=== PATIENT | female | born 1995 | race Caucasian/White ===

== ENCOUNTER → 2019-01-19 | Outpatient (CLI) | payer MEDICAID, SELFPAY ==
[2019-01-19 21:24] LABS: Chlamydia Trachomatis by PCR POSITIVE (Negative); Neisserai gonorrhoeae by PCR Negative (Negative); Probe Check PASS
[2019-01-22 09:00] LABS: HPV Reflexed? NOT INDICATED
== END | disposition home or self-care (01) ==
PROVIDERS: Visit Provider Obstetrics & Gynecology
DX: Z12.4 Encounter for screening for malignant neoplasm of cervix (principal); Z11.3 Encounter for screening for infections with a predominantly sexual mode of transmission
CPT/HCPCS: 87491; 87591; 88175; G0145

== ENCOUNTER → 2019-02-04 14:36 | Outpatient (CLI) | payer MEDICAID, SELFPAY ==
[2019-02-04 15:54] LABS: Amphetamine Urine VISTA NEGATIVE (<1000 ng/mL); Barbiturate Urine VISTA NEGATIVE (< 200 ng/mL); Benzodiazepine Urine VISTA NEGATIVE (< 200 ng/mL); Cocaine Urine VISTA NEGATIVE (< 300 ng/mL); Ecstacy Urine VISTA NEGATIVE (< 500 ng/mL); Methadone Urine VISTA NEGATIVE (< 300 ng/mL); PCP Urine VISTA NEGATIVE (< 25 ng/mL); THC Urine VISTA NEGATIVE (< 50 ng/mL); Vista UDS pH Range 6
[2019-02-04 15:59] LABS: Color, Urine Yellow (Yellow); Glucose, Dipstick Normal (Normal); Ketone-Dipstick Negative (Negative); Leukocyte Esterase-Dipstick 500 /ul (Negative); Nitrite-Dipstick Negative (Negative); Occult Blood-Urine Negative /ul (Negative); Protein-Dipstick Negative (Negative); Specific Gravity, Urine 1.015 (1.002-1.030); Urine Bilirubin Dipstick Negative (Negative); Urine Clarity Sl. Cloudy (Clear); Urine Urobilinogen 1 mg/dl (Normal); Urine pH 6.5 (5.0 - 8.0)
[2019-02-04 16:03] LABS: Thyroid Stim Hormone (TSH) 0.21 uIU/mL (0.358-3.74)
[2019-02-04 16:27] LABS: COTININE Drug Screen Negative (<200 ng/mL)
[2019-02-04 16:32] LABS: Absolute Lymphocyte Count 2.87 X10^3/ul (0.83-4.51); Absolute Neutrophil Count 7.8 X10^3/uL (2.0-7.7); Basophil# 0.05 X10^3/uL; Basophil% 0.4 % (0-1); Eosinophil# 0.14 X10^3/uL; Eosinophils% 1.2 % (0-5); Hematocrit 40.5 % (37-47); Lymphocyte # 2.87 X10^3/ul (4.0); Lymphocyte % 24.3 % (19-41); Mean Corp Hgb Conc 34.6 g/gl (32-36); Mean Corpuscular Hgb 28.4 pg (27.0-32.0); Mean Corpuscular Volume 82.2 fL (81-99); Mean Platelet Vol. 10.8 fl (6.2-12.0); Monocyte# 0.95 X10^3/uL; Neutrophil # 7.78 X10^3/uL (2.7-7.7); Neutrophil % 65.8 % (47-70); Platelet Count 258 K/mm3 (150-450); RBC Distribution Width SD 38.4 fl (35.1-43.9); Red Blood Count 4.93 M/mm3 (4.2-5.4); White Blood Count 11.8 K/mm3 (4.4-11.0)
[2019-02-04 16:33] LABS: POSITIVE COUNT NO; POSITIVE DIFFERENTIAL NO; POSITIVE MORPHOLOGY NO
[2019-02-04 16:44] LABS: HIV - WCH Non-Reactive (Nonreactive)
[2019-02-04 20:34] LABS: Chlamydia Trachomatis by PCR Negative (Negative); Neisserai gonorrhoeae by PCR Negative (Negative); Probe Check PASS; Sample Adequacy Control PASS; Specimen Processing Control PASS
[2019-02-05 11:11] LABS: Free T3 3.2 pg/mL (2.18-3.98); T4 Free Direct 1.34 ng/dL (0.76-1.46)
[2019-02-06 03:40] LABS: Prenatal RPR NONREACTIVE (NONREACTIVE)
[2019-02-06 11:31] LABS: HEPATITIS B SURFACE AG Negative (Negative); Hep C Antibodies <0.1 s/co ratio (0.0-0.9)
== END ==
PROVIDERS: Visit Provider Obstetrics & Gynecology
DX: Z34.81 Encounter for supervision of other normal pregnancy, first trimester (principal); Z11.3 Encounter for screening for infections with a predominantly sexual mode of transmission; R94.6 Abnormal results of thyroid function studies
CPT/HCPCS: 36415; 80307; 81002; 84439; 84443; 84481; 85025; 86703; 86762; 86803; 87340; 87491; 87591

== ENCOUNTER → 2019-06-08 | Outpatient (CLI) | payer MEDICAID, SELFPAY ==
[2019-06-08 10:41] LABS: Hematocrit 32.3 % (37-47); Mean Corp Hgb Conc 34.1 g/dL (32-36); Mean Corpuscular Hgb 30.7 pg (27.0-32.0); Mean Corpuscular Volume 90.2 fL (81-99); Mean Platelet Vol. 10.1 fl (6.2-12.0); Platelet Count 219 K/mm3 (150-450); RBC Distribution Width CV 12.5 % (11.6-14.6); RBC Distribution Width SD 41.3 fl (35.1-43.9); Red Blood Count 3.58 M/mm3 (4.2-5.4); White Blood Count 13.3 K/mm3 (4.4-11.0)
[2019-06-08 10:45] LABS: Glucose Challenge Gest 1H 50g 88 mg/dL (70-140)
== END | disposition home or self-care (01) ==
PROVIDERS: Visit Provider Obstetrics & Gynecology
DX: Z34.82 Encounter for supervision of other normal pregnancy, second trimester (principal)
CPT/HCPCS: 36415; 82950; 85027

== ENCOUNTER → 2019-06-11 | Outpatient (CLI) | payer MEDICAID, SELFPAY | END | disposition home or self-care (01) | LOC: LABSPEC 10:12 | PROVIDERS: Visit Provider Obstetrics & Gynecology | DX: O26.892 Other specified pregnancy related conditions, second trimester (principal); R30.0 Dysuria; Z3A.00 Weeks of gestation of pregnancy not specified | CPT/HCPCS: 87086; 87088 ==

== ENCOUNTER 2019-06-29 04:20 | Outpatient (CLI) | payer MEDICAID, SELFPAY ==
[2019-06-29 04:38] VITALS: BMI 24.8
[2019-06-29 04:55] LABS: Color, Urine Yellow (Yellow); Glucose, Dipstick Normal (Normal); Ketone-Dipstick 5 mg/dl (Negative); Leukocyte Esterase-Dipstick 100 /ul (Negative); Nitrite-Dipstick Negative (Negative); Occult Blood-Urine Negative /ul (Negative); Protein-Dipstick Negative (Negative); Specific Gravity, Urine 1.015 (1.002-1.030); Urine Bilirubin Dipstick Negative (Negative); Urine Clarity Sl. Cloudy (Clear); Urine Urobilinogen 1 mg/dl (Normal); Urine pH 6.5 (5.0 - 8.0)
[2019-06-29 05:24] LABS: Bacteria 0 SEEN /hpf (None Seen); Mucous, Urine 0 SEEN /hpf (<or=2+); Red Blood Cells-Urine 0 SEEN /hpf (0-5)
[2019-06-29 05:27] LABS: Squamous Epithelial Cells - UA > 100 SEEN /hpf (5-10); White Blood Cells 5-10 SEEN /hpf (0-5)
[2019-06-29] MEDS: Lactated Ringers 1,000 ML 999 ML IV (05:48)
[2019-06-29 06:30] LABS: Fetal Fibronectin Negative
[2019-06-29] MEDS: Betamethasone/Betamethasone 30 MG/5 ML Vial 12 MG IM (09:19)
--- NOTE | 2019-06-30 08:10 | OB.TRI.HP_ITS ---
History of Present Illness Date of Service: 06/29/19 Was patient seen by the physician?: No Reason For Visit: R/O LABOR Date of Service: 06/29/19 Final HSAMEKA: 09/07/19 Gestational age: 30 Weeks and 0 Days History of Present Illness: 30-week intrauterine presents with some contractions. care has been otherwise uneventful. Allergies Penicillins Allergy (Verified 06/29/19 04:50) Rash Laboratory Studies: Laboratory Tests 06/29/19 06/29/19 Range/Units 05:56 04:30 Urine Color Yellow (Yellow) Urine Clarity Sl. Cloudy (Clear) Urine pH 6.5 (5.0 - 8.0) Ur Specific [place] 1.015 (1.002-1.030) Urine Protein Negative (Negative) mg/dl Urine Glucose (UA) Normal (Normal) mg/dl Urine Ketones 5 H (Negative) mg/dl Urine Occult Blood Negative (Negative) /ul Urine Nitrite Negative (Negative) Urine Bilirubin Negative (Negative) mg/dL Urine Urobilinogen 1 H (Normal) mg/dl Ur Leukocyte Esterase 100 H (Negative) /ul Urine RBC 0 SEEN (0-5) /hpf Urine WBC 5-10 SEEN (0-5) /hpf Ur Squamous Epith Cells > 100 SEEN (5-10) /hpf Urine Bacteria 0 SEEN (None Seen) /hpf Urine Mucus 0 SEEN (<or=2+) /hpf Fibronectin Negative NST - FHR Rate Baby A NST Reactive:: Yes FHR Category:: Category I Uterine Activity:: Some uterine irritability noted on monitor which subsided after IV fluids. Impression/Plan 30-week intrauterine with some transient contractions. Cervix closed, nonthreatening and contractions slowed after IV fluid. Celestone given. Return for her second dose of Celestone and routine follow-up.
== END 2019-06-29 09:20 | disposition home health service (06) ==
LOC: WPOUT 04:28 → WP 04:30
PROVIDERS: Referring Provider Advanced Practice Midwife; Visit Provider Advanced Practice Midwife
DX: O60.03 Preterm labor without delivery, third trimester (principal); Z3A.30 30 weeks gestation of pregnancy
CPT/HCPCS: 96360; 59025; 59050; 81001; 82731; 96372; 99218; J7120; G0378; J0702

== ENCOUNTER 2019-06-30 08:57 | Outpatient (CLI) | payer MEDICAID, SELFPAY ==
[2019-06-29 04:38] VITALS: BMI 24.8
[2019-06-30 09:06] VITALS: BMI 25.0
[2019-06-30] MEDS: Betamethasone/Betamethasone 30 MG/5 ML Vial 12 MG IM (09:14)
--- NOTE | 2019-07-07 07:56 | OB.TRI.NOTE ---
History of Present Illness Reason For Visit: INJECTION Date of Service: 06/30/19 Final SHAMEKA: 09/07/19 Final SHAMEKA Source: US <20 weeks Gestational age: 30 Weeks and 1 Days History of Present Illness: presents this date of service for second betamethasone injection Allergies Penicillins Allergy (Verified 06/29/19 04:50) Rash Impression/Plan 30 1/ wk For second steroid injection. (See prior note visit) Betamethasone given Home.
== END 2019-06-30 09:20 | disposition home or self-care (01) ==
LOC: WPOUT 09:00 → WP 09:00
PROVIDERS: Referring Provider Obstetrics & Gynecology; Visit Provider Obstetrics & Gynecology
DX: Z34.90 Encounter for supervision of normal pregnancy, unspecified, unspecified trimester (principal)
CPT/HCPCS: 96372; 99218; G0378; J0702

== ENCOUNTER → 2019-07-13 | Outpatient (CLI) | payer MEDICAID, SELFPAY ==
[2019-06-30 09:06] VITALS: BMI 25.0
[2019-07-13 13:52] LABS: Free T3 2.6 pg/mL (2.18-3.98); T4 Free Direct 0.83 ng/dL (0.76-1.46); Thyroid Stim Hormone (TSH) 1.11 uIU/mL (0.358-3.74)
== END | disposition home or self-care (01) ==
LOC: WOBLAB 09:59
PROVIDERS: Visit Provider Obstetrics & Gynecology
DX: Z34.83 Encounter for supervision of other normal pregnancy, third trimester (principal)
CPT/HCPCS: 36415; 84439; 84443; 84481

== ENCOUNTER → 2019-08-10 | Outpatient (CLI) | payer MEDICAID, SELFPAY | END | disposition home or self-care (01) | LOC: LABSPEC 13:07 | PROVIDERS: Visit Provider Obstetrics & Gynecology | DX: Z36.85 Encounter for antenatal screening for Streptococcus B (principal) | CPT/HCPCS: 87077; 87081; 87186 ==

== ENCOUNTER 2019-08-29 07:50 | Outpatient (CLI) | payer MEDICAID, SELFPAY ==
[2019-08-29 08:37] VITALS: BMI 28.4
[2019-08-29 09:12] LABS: ROM Internal Control Test YES-OK TO RESULT pt. (Internal QC); ROM Patient Test Negative (Negative)
--- NOTE | 2019-08-31 08:04 | OB.TRI.HP_ITS ---
History of Present Illness Date of Service: 08/29/19 Was patient seen by the physician?: Yes Reason For Visit: R/O RUPTURE Date of Service: 08/29/19 Final SHAMEKA: 09/07/19 Final SHAMEKA Source: US <20 weeks Gestational age: 38 Weeks and 5 Days History of Present Illness: 23 yo [id number] female presents at 38 5/7 wk with inc fluid per vagina. [place] the night prior. Here for labor check. Allergies Penicillins Allergy (Verified 06/29/19 04:50) Rash Laboratory Studies: Laboratory Tests 08/29/19 Range/Units 08:10 Vag Amniotic Fld Detect Negative (Negative) Physical Exam Cervix Dilation (cm): 0 - ROM plus test NEGATIVE Station: -3 Effacement (%): 0 NST - FHR Rate Baby A Baseline: 110-120s avg variability. Accels to 160-170 Variability:: Moderate Accelerations:: 15 x 15 Decelerations:: None NST Reactive:: Yes, Appropriate for gestational age FHR Category:: Category I Uterine Activity:: irregular UCs. Impression/Plan 38 5/7 wk false labor. ROM plus test NEG Cervix closed NST reactive Home after testing Keep next ofc appt as scheduled Return to if inc s/sx of labor.
== END 2019-08-29 09:25 | disposition home or self-care (01) ==
LOC: WPOUT 08:20 → WP 08:21
PROVIDERS: Referring Provider Advanced Practice Midwife; Visit Provider Advanced Practice Midwife
DX: O47.1 False labor at or after 37 completed weeks of gestation (principal); Z3A.38 38 weeks gestation of pregnancy
CPT/HCPCS: 59025; 59050; 84112; 99218; G0378

== ENCOUNTER 2019-09-01 10:50 | Inpatient (IN) | payer MEDICAID, SELFPAY ==
[2019-09-01 10:42] VITALS: BMI 28.7
[2019-09-01 10:47] LABS: ROM Internal Control Test YES-OK TO RESULT pt. (Internal QC)
[2019-09-01 10:49] LABS: ROM Patient Test POSITIVE (Negative)
[2019-09-01 12:31] LABS: Absolute Lymphocyte Count 2.49 X10^3/uL (0.83-4.51); Absolute Neutrophil Count 8.7 X10^3/uL (2.0-7.7); Basophil# 0.04 X10^3/uL; Basophil% 0.3 % (0-1); Eosinophil# 0.02 X10^3/uL; Eosinophils% 0.2 % (0-5); Hematocrit 31.4 % (37-47); Hemoglobin 10.4 g/dL (12.0-15.0); Lymphocyte # 2.49 X10^3/ul (4.0); Mean Corp Hgb Conc 33.1 g/dL (32-36); Mean Corpuscular Hgb 26.9 pg (27.0-32.0); Mean Corpuscular Volume 81.1 fL (81-99); Mean Platelet Vol. 10.8 fl (6.2-12.0); Monocyte# 1.32 X10^3/uL; Monocyte% 10.1 % (0-10); NRBC Flagged by Analyzer 0 % (0-5); Neutrophil # 8.74 X10^3/uL (2.7-7.7); Neutrophil % 66.6 % (47-70); Platelet Count 191 K/mm3 (150-450); RBC Distribution Width SD 40.7 fl (35.1-43.9); Red Blood Count 3.87 M/mm3 (4.2-5.4); White Blood Count 13.1 K/mm3 (4.4-11.0)
[2019-09-01] MEDS: Oxytocin 30 units/NS 500 ml 30 UNITS/500 ML IV.SOLN IV (13:11)
[2019-09-01] MEDS: Lactated Ringers 1,000 ML 50 ML IV (13:11)
--- NOTE | 2019-09-01 13:38 | HP.PCM_ITS ---
History and Physical Date of Admission: 09/01/19 [facility] [place] ANTEPARTUM RECORD - HISTORY AND PHYSICAL (09/01/2019) Name: OSBALDO SHERMAN OB Physician: SOPHY Tohatchi's Physician: UNDECIDED ...................................................................... : 1995 Age: 23 Address: [address] [place] [address] Phone: (h) [phone] (O) [phone] Insurance Carrier: [employer] [id number] Emergency Contact: ITZEL ROMEO [phone] ...................................................................... Osbaldo is a 23yo at 39w1d gestation by L=9w2d US who presents to unit c/o PROM at 0700 Final SHAMEKA: 09/07/19 By Ultrasound: 9 weeks 2 days PARITY: (G-Total Pregnancies P-Fullterm,Premature,Induced AB,Spont AB, Ectopics, Multiple,Living) SHAMEKA CONFIRMATION: By LMP: 12/01/18 Initial Exam: 09/07/19 By First Ultrasound Exam: 09/09/19 Final SHAMEKA: 09/07/19 BLOOD TYPE: AFP: 1 HR PG: GBS: Original Ordering Provider: Elke INTERIANO Culture ORGANISM 1: Streptococcus agalactiae (B) Amount Growth Growth Streptococcus agalactiae (B): REACTION Ampicillin $ <=0.25 S Benzylpenicillin NF <=0.06 S Ceftriaxone $ <=0.12 S Clindamycin $$ <=0.25 S Inducable Clindamycin Resistan NEG Linezolid $$$$ <=2 S Vancomycin $ 0.5 S Reference Range: S= Susceptible, I= Intermediate, R= Resistant MICS are expressed in micrograms per mL (NF) indicates non-formulary drug at [facility]. Approval by Infectious Disease Specialist required before non-formulary drugs may be ordered and/or dispensed. Testing performed on Vitek 2 instrument Rublla titer (>10 immune)-- Hepatatis B mars AG-- CULTURES:-- OB PROBLEM LIST: ALLERGIC TO PENICILLINS Enc office Childbirth and Classes. Decline AFP and CF. Group B positive Tdap done! TSH low first trimester, Free T4 WNL Repeat 3rd trimester -- ALL WNL ALLERGIES: No Known Drug Allergies Penicillins Rash MEDICATIONS: Vitamin 27 mg iron-0.8 mg tablet SOCIAL HISTORY: Smoking - Never Alcohol Use - occasionally not while Diet - balanced Diet and About one can daily of soda. Water intake tries 2-3 bottles daily. 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 Place of - [place] Hours Worked - varies Spouse-Sig Other Name - Anjum Romeo Spouse-Sig Other Occupation - self employed [employer] Spouse-Sig Other Phone No - [phone] PRIOR DELIVERY HISTORY DEL DATE GEST LAB WT LB WT OZ TYPE ANES LABOR TX ANTEPARTUM FLOW CHART VISIT GE RTC FU F F VT U U DATE WK MD WKS HT PN HR M SS BP ED WT VT GL D EF ST __ ____ ___ __ __ ___ __ __ __ ___ __ __ __ ___ __ 02 Aug ELB 1 38 V + + 118/70 sl 154 1 50 -3 Jul ELB 1 38 V + + 124/70 151 tr - cl TH -3 Jul ELB 1 36 V + + 114/80 0 149 tr - Jul ELB 1 34 V + + 100/70 0 147 tr - cl TH -3 Jun ELB 2 34 V + + 90/60 0 144 - - 14 Jun 32 ELB 2 32 + 90/56 0 139 - - 30 Jun 29 ELB 2 29 - + + 102/56 0 136 - - Jun 26 ELB 3 27 - + + 106/62 0 129 tr - 09 Jun 26 ELB 2 27 - U+ + 120/70 0 131 tr - May 22 ELB 4 22 - + + 102/60 0 123 tr - Apr 17 ELB 4 - - U+ + 90/52 0 116 tr - Apr 15 ELB 3 - - + O 80/50 0 115 - - Feb 13 DS 4 13 ? + O 108/68 0 114 - - February 05 DS 4 U+ O 102/58 0 121 - - ANTEPARTUM NOTE(S): Aug 31 2019: see note Aug 24 2019: Aug 17 2019: feeling well. Cxs on and off. Aug 10 2019: GBS and LARC today. Intereseted in IUD 6 wk . Jul 27 2019: feeling well. Cxs come and going. Jul 13 2019: feeling well. Jun 29 2019: feeling well. In L and D lastnight due to cxs. Jun 11 2019: Jun 08 2019: doing well, glucola given May 11 2019: back pain Apr 13 2019: comp u/s today Mar 30 2019: complains of dizziness when standing. Mar 05 2019: Periodic nausea and fatigue February 04 2019: see note COMPREHENSIVE ANTEPARTUM NOTE(S): Aug 31 2019: Osbaldo is here for visit. Reviewed signs and sx of labor. Eating ice and worried about anemia. Reassured regarding last Hgb of 11. No other craving to eat other non nutritional objects. She is asking about mucus plug. Advised of little significance. Watch for SROM, bloody show, progressive ctx's. FM reviewed. Had Tdap but no Influenza as reactions to this jprior. LMT Aug 14 2019: H taken to OB. tkg Aug 13 2019: Group B positive - KVW Jul 27 2019: (m*) Reports +FM, FHR 138. [place] baby do a flip, but vertex today still. Educated on now running out of room to move, so if head down will likely stay head down. Reporting contractions almost every night at bed which make it hard to fall asleep. Educated on remaining hydrated, taking it easier during the day, OTC sleep aides that may help and to come in if regular. Patient asked why no other providers have ordered US for her because she had one at every visit with her previous doctor who left. Reviewed normal recommended time frame for 2 US in . States she is a lot more relieved to know this now. Will return in 2 weeks for appt with EB. To call with regular UC or any questions/conerns. - Jul 13 2019: 32 weeks. Reporting mild irregular, UC. Nothing consistent like before. Reassured with two doses of betamethasone. Reviewed s/s of ROM, regular contractions q5min, or bleeding to call/come in. Heart tones 130. Will recheck TSH, free T4 and T3 today, 0.21 in 1st trimester with normal T4. Hg borderline at 11, Reviewed iron rich foods like red meats and green leafy vegetables, reports good protein intake. - Jun 29 2019: In L and D last night with CC of UCs and cramping. UA no bacteria (poor clean catch with many epithelial cells.) FFN test NEG. Encouraged home to rest. NST reactive in L and D. Reviewed 28 wk labs all WNL. RTO in 2 wk for PNV. EB Jun 11 2019: Osbaldo is here as a work in visit reporting leaking clear fluid yesterday, greenish discharge apprx 9 pm and again 3am when she woke up w/ cramping. Cramping is less now and no further green discharge or clear fluid. Long dip urine showing spgr 1.010, ph 7.5, trace protein, large leuks, rest is negative. Good FM. kbm Jun 11 2019: fundal height cwd. Reviewed 28 wk labs. all WNL. SROM testing today: negative. Neg pool, neg fern, Ntz neg. Vaginal vault with thick yellow - grn adherent dischg Watery dischg. Wet prep: yeast. RX sent in for terconazole to treat. EB Jun 10 2019: Hgb 11 g/d. Glucola 88 WNL. EB Jun 08 2019: Pt thought sono to be done today. Low lying placenta 1.85cm Plan was to repeat sono at 30 wks.. Pt informed was scheduled for this at NEXT PNV in 2 wks as we did Glucola today. Sono tech has time, so will do sono today. RTO in 2 wk for PNV. Glucola done today. EB May 11 2019: Osbaldo is here for visit. Asking about repeat u/s for low lying placenta, advised around 28-30 weeks for this. Reports more back pain. Encouraged exercise like walking and daily stretching as per the What to Expect book in the fourth month they go over exercises to improve discomforts associated with enlarging uterus. Glucola given, reminided regarding influenza and Tdap. LMT May 11 2019: Glucola and CBC next visit. F/U sono at 30 wk for placenta. EB Apr 13 2019: -2 # wt gain. Baby transverse on sono.. 53rd%. 10 oz. Lower lying placenta, no previa... 1.85 cm from cervical os. EB Mar 30 2019: Advised to inc po fluids to help with orthostatic hypotension sx. Dizzy with standing quickly. ALSO: some cramping and inc po fluids should help with this .. Reviewed record to this point. 3# wt loss.. .denies any N/V. Feeling well. Prior chlamydia positive tx'd and NEG BREEZY. She took the [place] [place] test: IT'S A BOY! RTO in 2-3 wk for anatomy ultrasound. Advised this is to check baby's anatomy: growth, kidneys, heart, etc. May also confirm gender. EB Mar 05 2019: Doing well. No bleeding. labs reviewed today. A positive blood type. Feb 04 2019: US c/w LMP dating today. No bleeding. NOB nurse intake and labs ordered today. Will repeat GC/Chlam testing at her next visit. Feb 04 2019: Osbaldo is here with FOBasil, Anjum Romeo for NOB nurse visit with SHAMEKA 09-07-19 planning a vag del at [facility], unsure of epidural or ped care post delivery. 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 They live with Anjum's parents. They are happy about the . Osbaldo is allergic to penicillins which cause a rash. She has no food, latex or environmental allergies. Her diet sounds well balanced w an occ can of soda. She drinks a few bottles of water daily and was advised to try to double that soon and increase to several liters as the weather warms up. Importance of protein in her diet discussed. She is a lifetime non smoker, denies street drug use, past or present and drinks alcohol occ but not in pg. She is active with her job however does no other exercise and was enc to walk 20 min daily. She seems unwilling to do this. Genetics Screening form completed noting no family issues. They decline AFP and CF tests. Warning signs in pg discussed as well as otc meds ok to take, lifting restriction of 25#, wearing seatbelt low on her abdomen, reaching office after hours w understanding voiced. They have a copy of What to Expect. US done and routine labs drawn. Info given on Childbirth and Classes in the office and given info on foods to be careful with during pg. They have no cats but are aware of litter box issues. Enc to call w any concerns. Visit lasted approx 50 min. Parvin HERNANDES Jan 19 2019: PT is a 23 yo female, Primip, here today for a missed menses appt. PT had a positve UPT in office today. PT LMP was 12/01/2018, giving her an EDC of 09/07/2019 and making her approx. 7 wks GA today. PT states she had some slight spotting yesterday, bright red in color, but has since stopped. PT denies any other problems or concerns at this time. PT given new bag/paperwork. PT is due for pap and G/ .CT today . dg REVIEW OF SYSTEMS: GENERAL - Denies fever, or chills SKIN - Denies rash, new skin lesions, or change in moles EYES - Denies blurred vision, or change in visual acuity EARS - Denies ear pain, or difficulty hearing NOSE - Denies nasal congestion, discharge, or bleeding MOUTH - Denies sore throat, or difficulty swallowing NECK - Denies pain or swelling RESPIRATORY - Denies shortness of breath, cough, wheezing CARDIOVASCULAR - Denies palpitations, chest pain, orthopnea, PND, peripheral edema, syncope or claudication GASTROINTESTINAL - Denies nausea, vomiting, diarrhea, constipation, Denies abdominal pain, melena and or bright red blood GENITOURINARY - Denies dysuria, frequency of urination, urgency, or hesitancy MUSCULOSKELETAL - Denies joint or muscle pain, or back pain NEUROLOGICAL - Denies localized numbness, weakness, or tingling PSYCHIATRIC - Denies depression, anxiety, substance abuse or suicide attempts ENDOCRINE - Denies heat or cold intolerance, weight loss or gain, increasing thirst HEMATO-IMMUNOLOGIC - Denies easy bruising, bleeding, oral ulcerations or recurr ent infections GENETICS SCREENING: Age 35+ years: No Thalassemia: No Neural Tube Defect: No Down Syndrome: No BREEZY-SACHS: No Sickle Cell Disease: No Hemophilia: No Musc. Dystrophy: No Cystic Fibrosis: No-declines screening Hodgeman Chorea: No Mental Retardation: No Fragile X: No Other genetic: No Other defects: No SABs/still births: No Drugs since LMP: Yes INFECTION HISTORY: High risk AIDS: No High risk Hepatitis: No Exposed to TB: No Exposed to Herpes: No Rash/viral illness since LMP: No History of STD: Chlamydia, Treated at appt. MENSTRUAL HISTORY: *Menses Amount/Duration: 4-5 daysMenses Regularity: RegularFrequency: 28* PAST SUMMARY: PARITY: 1. Total Pregnancies............ 1 2. Full Term Pregnancies........ 0 3. Premature.................... 0 4. Abortions - Induced.......... 0 5. Abortions - Spontaneous...... 0 6. Ectopics..................... 0 7. Multiple Births.............. 0 8. Living Children.............. 0 Labs for : OSBALDO SHERMAN since 12/11/2018 ORDER DATEIN DESCRIPTION VALUE UNITS RANGE A+ COMMENT CBC W/DIFF, AUTOMATED 09/01/19 NOTE Original Ordering Provider: KENDRA Harris WBC 13.1 K/mm3 4.4-11.0 H RBC 3.87 M/mm3 4.2-5.4 L HGB 10.4 g/dL 12.0-15.0 L HCT 31.4 % 37-47 L MCV 81.1 fL 81-99 MCH 26.9 pg 27.0-32.0 L MCHC 33.1 g/dL 32-36 RDW CV 14.0 % 11.6-14.6 RDW SD 40.7 fl 35.1-43.9 PLT 191 K/mm3 150-450 MPV 10.8 fl 6.2-12.0 NEUT% 66.6 % 47-70 LY% 19.0 % 19-41 MONO% 10.1 % 0-10 H EO% 0.2 % 0-5 BASO% 0.3 % 0-1 IM GRAN % 3.800 % 0.0-0.9 H IG% - Immature Granulocytes (promyelocytes, myelocytes and metamyelocytes) > 1% indicates that a LEFT SHIFT is Present. ABSOLUTE NEUT 8.7 X10 3/uL 2.0-7.7 H ABSOLUTE LYMPH 2.49 X10 3/uL 0.83-4.51 NRBC, FLAGGED 0 % 0-5 (ROM) RUPTURE OF MEMBRANES 09/01/19 NOTE Original Ordering Provider: KENDRA Harris ROM POSITIVE Negative H Amniotic fluid present indicates rupture of Membranes. RESULTS CALLED TO SEEMA HERNANDES (O.B.) 09/01/19 1047 Percy Gambino. REPORT READ BACK BY . Reviewed by ELKE (TYRELL) RUPTURE OF MEMBRANES 08/29/19 NOTE Original Ordering Provider: KENDRA Oanholga Harris ROM Negative Negative Amniotic fluid not present indicates No Rupture of Membranes at time of specimen collection. Reviewed by ELKE CULTURE, GROUP B STREPTOCOCCUS 08/10/19 NOTE Original Ordering Provider: Elke Ray LAISHA Culture ORGANISM 1: Streptococcus agalactiae (B) Amount Growth Growth Streptococcus agalactiae (B): REACTION Ampicillin $ <=0.25 S Benzylpenicillin NF <=0.06 S Ceftriaxone $ <=0.12 S Clindamycin $$ <=0.25 S Inducable Clindamycin Resistan NEG Linezolid $$$$ <=2 S Vancomycin $ 0.5 S Reference Range: S= Susceptible, I= Intermediate, R= Resistant MICS are expressed in micrograms per mL (NF) indicates non-formulary drug at [facility]. Approval by Infectious Disease Specialist required before non-formulary drugs may be ordered and/or dispensed. Testing performed on Vitek 2 instrument Reviewed by ELKE T4 FREE DIRECT 07/13/19 NOTE Original Ordering Provider: Elke Ray T4 FREE DIRECT 0.83 ng/dL 0.76-1.46 Reviewed by ELKE THYROID STIM HORMONE (TSH) 07/13/19 NOTE Original Ordering Provider: Elke Ray TSH 1.11 uIU/mL 0.358-3.74 Reviewed by ELKE FREE T3 07/13/19 NOTE Original Ordering Provider: Elke Ray FREE T3 2.6 pg/mL 2.18-3.98 Reviewed by ELKE CORREA, URINE 06/11/19 NOTE Original Ordering Provider: Elke Ray Urine Culture Below infection level. ORGANISM 1: Mixed Gram Positive Organisms Napoleon Count <1000 ORGANISM 2: Yeast Like Organism Napoleon Count <1000 Reviewed by ELKE GLUCOSE CHALLENGE GEST 1H 50G 06/08/19 NOTE Original Ordering Provider: Elke Ray GLU GEST 50G 1H 88 mg/dL 70-140 Reviewed by ELKE CBC-COMPLETE BLOOD CNT NO DIFF 06/08/19 NOTE Original Ordering Provider: Elke Ray WBC 13.3 K/mm3 4.4-11.0 H RBC 3.58 M/mm3 4.2-5.4 L HGB 11.0 g/dL 12.0-15.0 L HCT 32.3 % 37-47 L MCV 90.2 fL 81-99 MCH 30.7 pg 27.0-32.0 MCHC 34.1 g/dL 32-36 RDW CV 12.5 % 11.6-14.6 RDW SD 41.3 fl 35.1-43.9 PLT 219 K/mm3 150-450 MPV 10.1 fl 6.2-12.0 Reviewed by ELKE HEPATITIS C ANTIBODIES 02/04/19 NOTE Original Ordering Provider: Murray Barney HEP C AB <0.1 s/co ratio 0.0-0.9 Negative: < 0.8 Indeterminate: 0.8 - 0.9 Positive: > 0.9 The CDC recommends that a positive HCV antibody result be followed up with a HCV Nucleic Acid Amplification test (893686). Reviewed by MURRAY HEPATITIS B SURFACE AG 02/04/19 NOTE Original Ordering Provider: Murray Barney HB SURF AG Negative Negative Performed at: [address] [id number] Senior Sales Administrator: Arnulfo Salmeron PhD, Phone: [phone] Reviewed by MURRAY RPR 02/04/19 NOTE Original Ordering Provider: Murray Barney RPRw NONREACTIVE NONREACTIVE Reviewed by RONNIE T4 FREE DIRECT 02/04/19 NOTE Original Ordering Provider: Murray Barney T4 FREE DIRECT 1.34 ng/dL 0.76-1.46 Reviewed by MURRAY THYROID STIM HORMONE (TSH) 02/04/19 NOTE Original Ordering Provider: Murray Barney TSH 0.21 uIU/mL 0.358-3.74 L Reviewed by MURRAY FREE T3 02/04/19 NOTE Original Ordering Provider: Murray Barney FREE T3 3.2 pg/mL 2.18-3.98 Reviewed by MURRAY T AND S-NO CHARGE W/PNP 02/04/19 Reason for Type AND Screen/Red Cells: Surgery? [facility]~[address] [place], [address]~ BLOOD TYPE GEL A POSITIVE N AB SCREEN GEL NEGATIVE N Reviewed by MURRAY HIV - [facility] 02/04/19 NOTE Original Ordering Provider: Murray Barney HIV - [facility] Non-Reactive Nonreactive Reviewed by MURRAY RUBELLA IGG 02/04/19 NOTE Original Ordering Provider: Murray Barney RUBELLA IGG 125.0 IU/mL Antibody results Interpretation of Immune Status < 5 IU/ml Presumed Non-immune 5 - < 10 IU/ml Equivocal > or = 10 IU/ml Presumed Immune Reviewed by MURRAY CBC W/DIFF, AUTOMATED 02/04/19 NOTE Original Ordering Provider: Murray Barney WBC 11.8 K/mm3 4.4-11.0 H RBC 4.93 M/mm3 4.2-5.4 HGB 14.0 g/dl 12.0-15.0 HCT 40.5 % 37-47 MCV 82.2 fL 81-99 MCH 28.4 pg 27.0-32.0 MCHC 34.6 g/gl 32-36 RDW CV 13.0 % 11.6-14.6 RDW SD 38.4 fl 35.1-43.9 PLT 258 K/mm3 150-450 MPV 10.8 fl 6.2-12.0 NEUT% 65.8 % 47-70 LY% 24.3 % 19-41 MONO% 8.0 % 0-10 EO% 1.2 % 0-5 BASO% 0.4 % 0-1 IM GRAN % 0.300 % 0.0-0.9 IG% - Immature Granulocytes (promyelocytes, myelocytes and metamyelocytes) > 1% indicates that a LEFT SHIFT is Present. ABSOLUTE NEUT 7.8 X10 3/uL 2.0-7.7 H ABSOLUTE LYMPH 2.87 X10 3/ul 0.83-4.51 Reviewed by MURRAY NICOTINE URINE DRUG SCREEN 02/04/19 NOTE Original Ordering Provider: Murray Barney TO BE CONFIRMED CONFIRMATORY TESTING FOR ALL POSITIVE URINE DRUG SCREEN RESULTS WILL ONLY BE SENT OUT UPON PHYSICIAN ORDER. The results of Urine Drug Screen methods provide only preliminary analytical test results. A more specific alternate chemical method must be used in order to obtain a confirmed analytical result. Gas chromatography/mass spectrometery (GC/MS) is the preferred confirmatory method. Clinical consideration and professional judgement should be applied to any drug of abuse test result, particularly when preliminary positive results are used. COT DRG SCREEN Negative <200 ng/mL Cotinine is the first-stage metabolite of Nicotine. Reviewed by MURRAY URINE DRUG SCREEN (VISTA) 02/04/19 NOTE Original Ordering Provider: Murray Barney TO BE CONFIRMED CONFIRMATORY TESTING FOR ALL POSITIVE URINE DRUG SCREEN RESULTS WILL ONLY BE SENT OUT UPON PHYSICIAN ORDER. VISTA Urine Drug Screen methods provide only preliminary analytical test results. A more specific alternate chemical method must be used in order to obtain a confirmed analytical result. Gas chromatography/mass spectrometery (GC/MS) is the preferred confirmatory method. Clinical consideration and professional judgement should be applied to any drug of abuse test result, particularly when preliminary positive results are used. URINE TCA TESTING MUST BE ORDERED SEPARATELY. USE TEST MNEMONIC: [place] UDS PH 6 AMPHETAMINES NEGATIVE <1000 ng/mL BARBITIURATES NEGATIVE < 200 ng/mL BENZODIAZIPINE NEGATIVE < 200 ng/mL COCAINE NEGATIVE < 300 ng/mL ECSTACY NEGATIVE < 500 ng/mL METHADONE NEGATIVE < 300 ng/mL OPIATES NEGATIVE < 300 ng/mL PCP NEGATIVE < 25 ng/mL THC NEGATIVE < 50 ng/mL Reviewed by MURRAY Reviewed by MURRAY URINALYSIS, ROUTINE (DIPSTICK) 02/04/19 NOTE Original Ordering Provider: Murray Barney COLOR Yellow Yellow CLARITY Sl. Cloudy Clear GLUCOSE, UR Normal mg/dl Normal BILIRUBIN URINE Negative mg/dL Negative KETONE UR Negative mg/dl Negative SP.GR. DIPSTX 1.015 1.002-1.030 PH UR 6.5 5.0 - 8.0 PROT DIPSTX Negative mg/dl Negative UROBILI 1 mg/dl Normal H NITRITE UR Negative Negative OCCULT BLOOD-UR Negative /ul Negative LEUK ESTERASE 500 /ul Negative H Reviewed by MURRAY CT/JULEE [facility] BY PCR 02/04/19 NOTE Original Ordering Provider: Murray Barney CHLAM TRA PCR Negative Negative NG BY PCR Negative Negative Reviewed by MURRAY PAP I-G W/RFX HRHPV 01/19/19 NOTE Original Ordering Provider: Murray Barney DIAGN . NEGATIVE FOR INTRAEPITHELIAL LESION OR MALIGNANCY. FUNGAL ORGANISMS MORPHOLOGICALLY CONSISTENT WITH SHARAD SPECIES ARE PRESENT. ADEQ . Satisfactory for evaluation. Endocervical and/or squamous metaplastic cells (endocervical component) are present. PERFORM . Angelina Tolentino Teacher Emotionally Impaired (ASCP) TEST METHOD . This liquid based ThinPrep(R) pap test was screened with the use of an image guided system. COMM . . PAPSMR . The Pap smear is a screening test designed to aid in the detection of premalignant and malignant conditions of the uterine cervix. It is not a diagnostic procedure and should not be used as the sole means of detecting cervical cancer. Both false-positive and false-negative reports do occur. HPV RFLX . The HPV DNA reflex criteria were not met with this specimen result therefore, no HPV testing was performed. Performed at: [address] [id number] Senior Sales Administrator: Sheyla Banks MD, Phone: [phone] Reviewed by MURRAY CT/JULEE [facility] BY PCR 01/19/19 NOTE Original Ordering Provider: Murray LOPEZ [facility] PCR POSITIVE Negative H JULEE BY PCR Negative Negative Reviewed by MURRAY PROVIDER SIGNATURE ( REQUIRED) PHYSICAL EXAMINATION General Appearence: 23 yo female in no acute distress Vital Signs: AF, VSS Heart: RRR without rubs or gallops Lungs: CTA x 2 Breasts: deferred Abdomen: gravid Pelvis: Cervix: 1/60/-2 at 1035 per RN Presentation: cephalic Labs: ROM+ positive Fetus: Size: AGA Movement: present Heart: 125 baseline, moderate variability, with accels, no decels UCs:Q 2-4 Impression: 23yo at 39w1d gestation by L=9w2d US PROM GBS positive Apos Plan: Pitocin augmentation GBS prophylaxis Anticipate vaginal delivery
--- NOTE | 2019-09-01 14:12 | PCM.PN.OB ---
Subjective: Comfortable; feeling pressure with UCs, but no real pain; has eaten very little today, would like a meal; family and SO bedside and supportive Objective: AVSS FHTs:115 baseline, moderate variability, with acels, no decels UCs: Q 2-4 Pitocin: 2mu Cervix: /-3 - Physical Exam Vitals/I&O's: Weight: 157 lb Body Mass Index (BMI) 28.7 General: Alert, Oriented x3, Cooperative, No apparent distress HEENT: PERRLA, EOMI Oral: Moist Mucosa Neck: Supple Lungs: Clear to auscultation, Normal air movement Cardiovascular: Regular rate, Regular Rhythm Abdomen: Bowel Sounds Present, Soft, Non Tender, Non-Distended, Passing Flatus, Gravid Extremities: Capillary Refill Less than 3 Seconds, No Calf Tenderness Skin: No rashes Musculoskeletal: No Tenderness to Palpation of Joints or Extremities Neurological: Cranial nerves II-XII grossly intact, Deep Tendon Reflexes 2+/4 and Symmetrical Psych/Mental Status: Normal Affect, Appropriate, Alert and oriented to time, place, person, mood and affect Laboratory Results 09/01/19 10:33: Vag Amniotic Fld Detect POSITIVE H 09/01/19 12:10: WBC 13.1 H, RBC 3.87 L, Hgb 10.4 L, Hct 31.4 L, MCV 81.1, MCH 26.9 L, MCHC 33.1, RDW Std Deviation 40.7, RDW Coeff of Jared 14.0, Plt Count 191, MPV 10.8, Immature Gran % (Auto) 3.800 H, Neut % (Auto) 66.6, Lymph % (Auto) 19.0, [place] % (Auto) 10.1 H, Eos % (Auto) 0.2, Baso % (Auto) 0.3, Absolute Neuts (auto) 8.7 H, Absolute Lymphs (auto) 2.49, Nucleated RBC % 0 09/01/19 12:10: Blood Type Cancelled, Antibody Screen Cancelled 09/01/19 12:45: Blood Type A POSITIVE, Antibody Screen NEGATIVE Current Medications Acetaminophen (Tylenol) 325 - 650 mg PO Q4H PRN PRN PRN Reason: Pain Score 1-3/10 Al Hydroxide/Mg Hydroxide (Mylanta Ii) 15 - 30 ml PO Q4H PRN PRN PRN Reason: INDIGESTION Citric Acid/Sodium Citrate (Bicitra) 30 ml PO X1 PRN PRN Reason: Section Lactated Ringer's () 500 mls @ 999 mls/hr IV .Q31M PRN PRN Reason: Epidural Lactated Ringer's () 500 mls @ 999 mls/hr IV .Q31M PRN PRN Reason: Corrective Measures Lactated Ringer's () 1,000 mls @ 50 mls/hr IV .Q20H [facility] Last Admin: 09/01/19 13:11 Dose: 50 mls/hr Documented by: Oxytocin/Sodium Chloride () 30 units in 500 mls @ 2 mls/hr IV .Q250H [facility] Last Admin: 09/01/19 13:11 Dose: 2 mls/hr Documented by: Clindamycin Phosphate 900 mg/ (Dextrose) 106 mls @ 150 mls/hr IV Q8H [facility] Last Admin: 09/01/19 12:35 Dose: 150 mls/hr Documented by: Nalbuphine HCl (Nubain) 5 - 10 mg IV Q3H PRN PRN PRN Reason: Pain Score 4-10/10 Nalbuphine HCl (Nubain) 5 - 10 mg SC Q3H PRN PRN PRN Reason: Pain Score 4-10/10 Ondansetron HCl (Zofran) 4 mg IV Q4H PRN PRN PRN Reason: NAUSEA Prochlorperazine Edisylate (Compazine Iv) 10 mg IV Q6H PRN PRN PRN Reason: NAUSEA Sodium Chloride () 10 - 40 ml IV X1 PRN PRN Reason: SALINE FLUSH Medical Necessity - Tobacco Use Smoking Status: Never smoker Assessment/Plan Impression: 23yo at 39w1d gestation by L=9w2d US Latent labor Cat 1 FHTs Plan: Pt may have regular diet until active labor Titrate Pitocin to achieve adequate labor Continue GBS prophylaxis
--- NOTE | 2019-09-01 17:32 | PCM.PN.BLA ---
Progress Note S: Feels stronger contractions, able to breathe through, denies need for medication or epidural at this time; SO and family bedside and supportive O: AVSS FHTs: 125 baseline, moderate variability, with accels, no decels UCs: Q 2 - 3.5 Pitocin: 10mu Leopolds: Vertex, ROP A: Early labor Group B positive Cat 1 FHTs Questionable malposition P: Continue titrating Pitocin to achieve adequate labor Frequent position changes, exaggerated Guzman, hands & knees, ball, peanut ball, etc. Will check progress w/cervical exam approx 1999
--- NOTE | 2019-09-01 20:41 | PCM.PN.BLA ---
Progress Note S: Feeling more discomfort with contractions; considering pain medication; SO, family bedside and supportive O: AVSS FHTs: 125 baseline, moderate variability, with accels, delilah decels UCs: Q 2-32 Pitocin: 12mu Cervix: 1.5/60/-2 Leopolds: Vertex ROP A: Early labor, non progressing GBS positive Questionable malposition Cat 1 FHTs P: AROM forebag for small amount clear fluid IUPC placed Continue Pitocin titration to achieve adequate labor Continue GBS prophylaxis Frequent position/activity changes IV pain medication or Nitrous oxide upon request; epidural upon request when active labor Recheck cervix 0230 or PRN
[2019-09-01] MEDS: Nalbuphine 10 MG/ML Ampul IV (22:01)
--- NOTE | 2019-09-02 | PLAC_PTH ---
PATIENT: OSBALDO SHERMAN LOC: [facility] U#:[id number] AGE/SX: 23/F ROOM: WP001 RE09/01/[address]: Dr. Gabriela Sloan MD : [id number] BED: 1 DIS: 09/04/2019 SPEC #: [id number] RECD: 09/03/19 10:34 STATUS: YOVANI REGonsalo #: [id number] SHERRI: 09/02/19 00:[address]: Gabriela Moe DEPT: SURGICAL PATHOLOGY RECD BY: Fausto Meneses ENTERED: 09/03/19 10:34 SP TYPE: PLACENTA OTHR DR: No Primary Care Phys Tissues: Placenta, NOS Procedures: Surgery Specimen Level V HEADER OPERATION: Primary section PRE-OP DIAGNOSIS: Prolong rupture TISSUE SUBMITTED: Placenta MICROSCOPIC DIAGNOSIS Placenta: Placental disc - third trimester placenta (612 gm). Membranes - no pathologic diagnosis. Umbilical cord - three blood vessels and no pathologic diagnosis. SJ:sp 09/07/19 MICROSCOPIC DESCRIPTION Slides are reviewed. GROSS DESCRIPTION SPECIMEN: PLACENTA / CLINICAL INFORMATION: A. Weight: 3.51 kg B. Gestational Age: 39 weeks C. Sex: Male PLACENTAL WEIGHT (POST FIXATION): 612 gm PLACENTAL DIMENSIONS: 19 x 17 x 3 cm PLACENTAL SHAPE: Usual ovoid PLACENTAL WEIGHT FOR GESTATIONAL AGE: >99th percentile MEMBRANES - Present A. Insertion: Marginal B. Site of rupture from edge: 4.5 cm from edge of placental disc C. Color of membrane: Batres-mejia D. Abnormalities: None E. Blood clot - 7.5 x 1 cm UMBILICAL CORD - Present A. Color: Batres-mejia B. Insertion: near central C. Length: 28 D. Diameter: 1.5 E. Number of vessels: Three F. Abnormalities: None PLACENTAL DISC - Present A. Color of surface: Batres-mejia B. surface abnormalities: None C. Maternal cotyledons: Intact with minimal tears D. Attached retro placental clot: No clot E. Cut surface: Dark red and spongy F. Lesions: None G. Separate clot: Absent SECTIONS SUBMITTED: 1. Umbilical cord ( end notched), placenta and cord is inked 2. Membrane roll 3. Placental disc, and maternal surfaces 4. Placental disc, and maternal surfaces 5. Placental disc, and maternal surfaces AM:nicky 09/04/19 TC: 4 CPT: 51929
[2019-09-02] MEDS: 0.9% Saline Lock 10 ML Syringe IV ×2 (00:04→03:44)
[2019-09-02] MEDS: Lactated Ringers 500 ML 999 ML IV ×3 (00:22→15:25)
[2019-09-02] MEDS: Ondansetron 4 MG/2 ML Vial IV ×2 (01:30→09:30)
[2019-09-02] MEDS: Oxytocin 30 units/NS 500 ml 30 UNITS/500 ML IV.SOLN IV (03:45)
[2019-09-02] MEDS: Nalbuphine 10 MG/ML Ampul IV (08:31)
[2019-09-02] MEDS: Lactated Ringers 1,000 ML 50 ML IV (09:30)
[2019-09-02] MEDS: fentaNYL-bupivacaine (epidural) 100 ML BAG EPIDURAL ×3 (10:17→19:54)
--- NOTE | 2019-09-02 12:37 | PCM.PN.BLA ---
Progress Note LATE ENTRY from approx 0845 AM Nubain given, not uncomfortable but attempting Martínez bulb placement for SROM, pitocin induction AVSS CX: tight 3 cm, midpostion, moderately firm. 75% / -3 Martínez placed and inflated with 60 cc EFM reassuring. UCs irregular A/P: 39 1/7 wk EGA with SROM yesterday 09/01/19 0700. Pitocin Induction, still prodromal labor. On Clindamycin for GBS prophylaxis Prolonged ROM. Continue Pitocin per protocol. Martínez bulb
--- NOTE | 2019-09-02 12:40 | PCM.PN.BLA ---
Progress Note LABOR PROGRESS NOTE Martínez fell out. Epidural placed and is comfortable. Multiple family members in room visiting AVSS Pitocin at 8 mIU/min EFM 120-130s avg variability Accels noted. UCs q 1-4 mins CX per last RN check - /-2 @ 1149 am A/P: 39 1/ wk SROM at 0700 09/01/19 Reassuring category I tracing, now early more active labor. Prolonged SROM but still afeb. continue induction, watch progress, descent.
--- NOTE | 2019-09-02 18:00 | PCM.PN.BLA ---
Progress Note Comfortable with epidural. Notes feeling lower abdominal pressure with contractions. Rina reports she is so tired and has not gotten sleep in 36 hours. AVSS GEN - NAD, AAO x 3 FHR 120, moderate variability, + accelerations, TOCO 5/10 with some coupleting, tripleting SVE /-2 per RN exam at approx 1604h A/P: 23yo G1 @ 39 2/7wga in active labor, CAt I FHR on pitocin with prolonged ROM, GBS on Clindamycin -Plan for repeat exam approximately 7pm -Reviewed with patient and family indications, reasons for avoiding unnecessary section including risk for uterine rupture and placenta accreta with associated maternal and risks. -Patient and family given opportunity to ask questions and questions answered to their satisfaction.
--- NOTE | 2019-09-02 18:50 | PCM.PN.BLA ---
Progress Note This is a late entry for 09/02/2019 1315 S: Comfortable with epidural; family and SO bedside and supportive O: AVSS FHTs: 120 baseline, minimal variability, no accels or decels UCs: Q 1-3 Cervix 5/60/-1 A: Early labor, slow progression ROM x 30hr, pitocin augmentation x 24 hr Cat 2 FHTs P: Rupture of forebag for small amount clear fluid Placement of FSE Continue titration of Pitocin to achieve adequate labor; watch for progression, descent, s/s infection Continue GBS prophylaxis Dr. Ray updated
[2019-09-02] MEDS: Lactated Ringers 1,000 ML 200 ML IV (20:00)
--- NOTE | 2019-09-02 20:29 | PCM.PN.BLA ---
Progress Note S: Comfortable with epidural, family bedside and supportive; patient and family concerned about risk of infection as a close family friend experienced complications to mother and 's health after long labor with ROM; O: AVSS FHTs: 120 baseline, moderate variability, with accels, no decels UCs: Q 1-3 Cervix: 6/90/-1 at 1913 per RN Pitocin: 12mu A: Active labor, slow progression Group B positive Cat 1 FHTs P: Extensive discussion regarding infection control, prophylactic antibiotics in use, risks/benefits of vs. vaginal delivery,and reassurance provided of heightened monitoring of pts condition and frequent consultation with backup physician; family and patient reassured Dr. Esquivel aware of patient progress Continue Pitocin titration to maintain adequate labor Continue GBS prophylaxis Q hour temperatures, alternating temporal and oral Frequent position changes Next SVE 2200
--- NOTE | 2019-09-02 23:32 | PN_ITS ---
Progress Note LABOR PROGRESS NOTE No complaints. Remains comfortable. 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 Reviewed related risks, benefits including risks, benefits, discussed need for possible surgery including but not limited to d&C or hysterectomy. Patient desires to proceed. d/c pitocin.
[2019-09-03] VITALS (23 sets, daily range): BP systolic 110–143; BP diastolic 53–108; PULSE 58–88; RESP 15–18; TEMP 36.8–37.4; O2SAT 97–100
[2019-09-03] MEDS: Sodium Citrate/Citric Acid 30 ML UDC PO (01:40)
[2019-09-03] MEDS: Methylergonovine 0.2 MG/ML Ampul IM (02:13)
--- NOTE | 2019-09-03 02:41 | OP.PCM_ITS ---
Problem List (1) 39 weeks gestation of Status: Acute Delivery Classification: VANDANA Final SHAMEKA: 09/07/19 Final SHAMEKA Source: US <20 weeks Gestational age: 39 Weeks and 3 Days operating room aide: Josef Gage Type of Anesthesia:: Epidural Date of Procedure: 09/03/19 Pre-Operative Diagnosis: 39 3/7wga, protracted latent phase Post-Operative Diagnosis: 39 3/7wga, protracted latent phase Indications: 23yo G1 @ 39 3/7wga admitted following rupture of membranes and progressed with marquez bulb, pitocin to 6-7cm dilation. Contractions remained inadequate with protracted active phase and presentation notably asynclitic. Planned to proceed with section however on arrival to OR, repeat Cervix check was 8cm dilation. Patient declined further laboring and opted to proceed with section at that time. Procedural r/b/i/a reviewed. Indications for : Prolonged Active Phase Description of Procedure: The patient was taken to the operating room and spinal analgesia was administered. She is placed in a dorsal supine position with left lateral tilt. The perineum and abdomen were prepped and draped in sterile fashion. And the spinal was found to be adequate. A Pfannenstiel incision was made using a scalpel and brought down to incise the subcutaneous tissue and rectus fascia at the midline. Subcutaneous tissue was bluntly dissected off the fascia laterally. The fascial incision was dissected laterally and cephalad using curved Kim scissors. The superior leaflet of the rectus fascia was grasped using Laura clamps and bluntly dissected and sharply dissected from the underlying rectus muscle. In a similar fashion the inferior rectus fascia was dissected from the underlying muscle. The rectus muscles were bluntly at the midline. The peritoneum was identified and entered [sharply]. The bladder blade was placed into the abdomen and the vesicouterine peritoneal fold identified. The fold was incised and a bladder flap created. Bladder blade was then repositioned to the abdomen. A low transverse hysterotomy was made using the [Metzenbaum scissors] to level of the membranes. The hysterotomy was extended bluntly cephalad and caudad. The membranes were then ruptured revealing clear fluid. The head was elevated and brought to the level of the hysterotomy and the infant delivered revealing vigorous [male] . The cord was doubly clamped and cut after 30 seconds. The was passed to awaiting [nursery personnel]. The placenta was [expressed] from the uterus and appeared intact on inspection. The uterus was cleared of debris. The hysterotomy was then repaired using 0 Vicryl running lock suture. A second imbricating layer was also placed for additional hemostasis. The bladder blade was removed. The anterior cul-de-sac was cleared of debris. The peritoneum and rectus muscles were reapproximated using 2-0 Vicryl running suture. The rectus fascia was closed using 0 Stratafix running suture. The subcutaneous tissue was sponge irrigated and small capillary bleeding controlled using the Bovie device. The subcutaneous tissue was reapproximated using 2-0 Vicryl. The skin was closed using 4-0 Monocryl subcuticularly by the MEAT PROCESS WORKER under my supervision. A Mepilex occlusive dressing was placed over the incision. The fundus was firm. The patient was then transferred to the recovery room without complication. Sponge, instrument, and needle counts were correct ?2. Amniotic Membrane Rupture Type: Spontaneous Amniotic Fluid Description: Clear Placenta Disposition: Sent to Pathology Drain: Marquez to straight drain Cord Entanglement: None Cord Vessel Description: 3 Vessels Esitmated Blood Loss (ml): 925 Gender: Male (1 minute): 8 (5 minute): 9 Antibiotic Given: Zithromax 500 mg/5 mL X1, - - Gentamicin 5mg/kg, Clindamycin 900mg Pt instructed on risks of surgery: Bleeding, Anesthesia Risks, Infection, Injury to surrounding structure(s) including bowel and bladder Complications: None - Admit VTE Documentation VTE Present on Admission: No VTE Mechan Device Prophylaxis: SCD's VTE Pharm Prophylaxis ordered?: No
[2019-09-03] MEDS: Oxytocin 30 units/NS 500 ml 30 UNITS/500 ML IV.SOLN 167 UNITS IV (03:00)
[2019-09-03 04:05] LABS: Pathology Specimen OB SEE PATHOLOGY REPORT
[2019-09-03] MEDS: Lactated Ringers 1,000 ML 100 ML IV (05:57)
--- NOTE | 2019-09-03 08:01 | PCM.PN.OB ---
Patient Problems: Active and Suspected Problems 39 weeks gestation of (Acute) Subjective: POD#0 Primary C section. Arrest of dilation Prolonged SROM doing ok. Plans to nurse Pain at incision with blowing nose, position changes. Pain control at rest is adequate. Objective: Lying in bed to L tilt - Physical Exam Vitals/I&O's: Vital Signs Temp Pulse Resp BP Pulse Ox 99.2 F H 72 16 130/61 H 99 09/03/19 07:04 09/03/19 07:04 09/03/19 07:04 09/03/19 07:04 09/03/19 07:04 Oxygen Delivery Method Room Air Weight: 71.214 kg Body Mass Index (BMI) 28.7 Intake and Output for Last 24 Hours 09/01/19 09/02/19 09/03/19 23:59 23:59 23:59 Intake Total 1164.88 / 1164.88 4055.84 / 4055.84 1998.58 / 1997.58 Output Total 700 / 700 3200 / 3200 800 / 800 Balance 464.88 / 464.88 855.84 / 855.84 1198.58 / 1198.58 General: Alert, Oriented x3, Cooperative, No apparent distress HEENT: Atraumatic, EOMI Oral: Moist Mucosa Neck: Supple Abdomen: Soft - Fundus firm at 2 - 3 cm inferior to umbilicus, Minimally tender c/w postop status. Skin: Incision - Mepilex dressing CDI with one spot of old, shadow drainage marked w/o extension Psych/Mental Status: Normal Affect Current Medications Acetaminophen (Tylenol) 1,000 mg PO Q8H PRN PRN Reason: Pain Score 1-3/10 Bisacodyl (Dulcolax) 10 mg RECTAL UD PRN PRN Reason: If no BM Hydrocortisone (Hytone) 1 applic TOPICAL TID PRN PRN; Protocol PRN Reason: Discomfort Lactated Ringer's () 1,000 mls @ 100 mls/hr IV .Q10H [facility] Last Admin: 09/03/19 05:57 Dose: 100 mls/hr Documented by: Naloxone HCl 4 mg/ Dextrose 504 mls @ 0 mls/hr IV .Q0M PRN; Protocol PRN Reason: Respiratory depression Ibuprofen (Motrin) 600 mg PO Q6H PRN PRN PRN Reason: Pain Score 1-3/10 Ketorolac Tromethamine (Toradol) 30 mg IV Q6H [facility] Stop: 09/05/19 02:31 Methylergonovine Maleate (Methergine) 0.2 mg IM X1 PRN PRN Reason: Uterine Atony Last Admin: 09/03/19 02:13 Dose: 0.2 mg Documented by: Nalbuphine HCl (Nubain) 5 mg IV Q3H PRN PRN PRN Reason: ITCHING Stop: 09/04/19 03:22 Naloxone HCl (Narcan) 0.02 mg IV Q1M PRN PRN Reason: RR <10 and pt unresponsive Ondansetron HCl (Zofran) 4 mg IV Q4H PRN PRN PRN Reason: NAUSEA Last Admin: 09/02/19 09:30 Dose: 4 mg Documented by: Ondansetron HCl (Zofran Odt) 4 mg PO Q4H PRN PRN PRN Reason: ITCHING Stop: 09/04/19 03:22 Oxycodone HCl (Oxyir) 5 - 10 mg PO Q4H PRN PRN PRN Reason: Pain Score 4-10/10 Multivit/Folic Acid/Iron (Prenatabs Fa) 1 tablet PO DAILY [facility] Prochlorperazine Edisylate (Compazine Iv) 10 mg IV Q6H PRN PRN PRN Reason: NAUSEA Senna/Docusate Sodium (Senokot-S, Nati-Colace) 1 - 2 tablet PO DAILY PRN PRN Reason: Constipation Simethicone (Mylicon) 80 mg PO PCHS PRN PRN Reason: Indigestion/stomach pain Sodium Chloride () 5 - 15 ml IV UD PRN PRN Reason: SALINE FLUSH Medical Necessity - Tobacco Use Smoking Status: Never smoker Assessment/Plan All Active Problems 39 weeks gestation of (Acute) POD#0 Primary C section for arrest of dilatation. Stable postop. incision CDI. AVSS Pain control adequate. Plans to nurse. Inc diet and activity as tolerated. Plan Toradol q 6 hrs, Tylenol prn. Encourage C&DB IS Advised of potential for postop fevers, pneumonia. Plans to try abdominal binder. Nursing assist prn. Continue care.
--- NOTE | 2019-09-03 08:05 | DCINST_ITS ---
Discharge Diet: No Restrictions Discharge Activity: May not drive while taking narcotic pain medications., May Shower, May Take a Tub Bath Return to work on:: 11/02/19 May resume sexual activity in: 4-6 weeks Lifting Restrictions: 20 pounds Additional Activity Instructions:: Nothing in the vagina for 4-6 weeks. You may return to work/school in 6 weeks. Change Dressing in (Days):: 7 Remove Dressing in (days):: 7 Cleanse incision/area with: Soap & Water, Keep Dressing Clean & Dry Additional Instructions: If you experience any of the following, contact your healthcare provider. * Bleeding that soaks a pad every hour for 2 hours * Fever 100.4 or higher * Unrelieved incision or abdominal pain * Swelling, redness, discharge or bleeding from your incision * Problems urinating (including inability to urinate or burning while urinating). * Visual changes * Severe headache * Flu-like symptoms * Pain or redness in one of both of your breasts * Pain, warmth, tenderness or swelling in your legs, especially the calf area * Frequent nausea and vomiting * Symptoms of depression or anxiety If you experience any of the following, call 911 or go to the nearest Emergency Room. * Chest pain * Problems breathing * Seizure activity * Partial or complete paralysis of a body part, slurred speech, weakness or drooping of the face, or a sudden inability to walk or hold your balance Allergies/Adverse Reactions: Allergies Penicillins Allergy (Verified 09/01/19 10:45) Rash Medications to take at Discharge Vits [Prenatabs FA] 1 tab PO DAILY 06/29/19 Docusate Sodium [Colace] 100 mg PO BID #30 cap 09/03/19 Naproxen [Naprosyn] 250 - 500 mg PO TID PRN PRN #30 tab 09/03/19 Oxycodone [Oxyir] 5 mg PO Q6H PRN PRN 4 Days #15 tablet 09/03/19 The following prescriptions were given: Docusate Sodium [Colace] 100 mg PO BID #30 cap Transmission Status: Pending to [id number] Naproxen [Naprosyn] 250 - 500 mg PO TID PRN PRN #30 tab PRN Reason: Mild-Mod Pain (-02/06) Transmission Status: Pending to [id number] Oxycodone [Oxyir] 5 mg PO Q6H PRN PRN 4 Days #15 tablet PRN Reason: Mod-Severe Pain (4-07/09) Transmission Status: Sent to [id number] Follow-Up: Call to make an appointment with your doctor for an incision check in 1-2 weeks. You will also need a 6 week post- follow up appointment. Test results from this visit will be discussed in further detail at your follow- up appointment, if applicable. Please Follow Up With: Elke Ray MD - [phone] When: Call to make an appointment for an incision check in 1 weeks. Primary Care Physician: Care Physician,No Primary [Primary Care Provider] - Proposed Discharge Date: 09/06/19
[2019-09-03] MEDS: Ketorolac 30 MG/ML Syringe IV ×3 (08:52→19:40)
[2019-09-03 10:25] LABS: Hematocrit 25.4 % (37-47); Hemoglobin 8.3 g/dL (12.0-15.0); Mean Corp Hgb Conc 32.7 g/dL (32-36); Mean Corpuscular Hgb 26.4 pg (27.0-32.0); Mean Corpuscular Volume 80.9 fL (81-99); Mean Platelet Vol. 10.7 fl (6.2-12.0); Platelet Count 142 K/mm3 (150-450); RBC Distribution Width CV 14.2 % (11.6-14.6); RBC Distribution Width SD 41.3 fl (35.1-43.9); Red Blood Count 3.14 M/mm3 (4.2-5.4); White Blood Count 18.2 K/mm3 (4.4-11.0)
[2019-09-03 10:29] LABS: Absolute Lymphocyte Count 1.95 X10^3/uL (0.83-4.51); Basophil# 0.03 X10^3/uL; Basophil% 0.2 % (0-1); Lymphocyte # 1.95 X10^3/ul (4.0); Lymphocyte % 11.1 % (19-41); Monocyte# 1.47 X10^3/uL; Monocyte% 8.3 % (0-10); NRBC Flagged by Analyzer 0 % (0-5); Neutrophil # 13.99 X10^3/uL (2.7-7.7); Neutrophil % 79.3 % (47-70)
[2019-09-03 11:17] LABS: HIV - WCH Non-Reactive (Nonreactive); Hepatitis C Antibody Non-Reactive (Nonreactive)
[2019-09-03] MEDS: 0.9% Saline Lock 10 ML Syringe IV (19:39)
[2019-09-04 01:00] VITALS: BP 110/58; PULSE 73; RESP 16; TEMP 36.9; O2SAT 100
--- NOTE | 2019-09-04 02:30 | NURSING ---
Pt. requests IV be taken out because she refuses her further toradol doses. States she would rather have the oral medication d/t her IV site hurting and the medication burning when it's given. This RN encouraged pt. to continue toradol doses as ordered and informed pt. of benefits, but pt. denies and still requests IV taken out. Vital signs WNL and fundal checks appropriate at u-1, midline and firm with scant bleeding. Pt. has also had 2 adequate voids. IV discontinued and motrin given per pt. request.
[2019-09-04] MEDS: Ibuprofen 600 MG Tablet PO ×2 (02:31→08:28)
[2019-09-04 05:10] LABS: Hematocrit 23.8 % (37-47); Mean Corp Hgb Conc 33.6 g/dL (32-36); Mean Corpuscular Hgb 27.3 pg (27.0-32.0); Mean Corpuscular Volume 81.2 fL (81-99); Mean Platelet Vol. 10.7 fl (6.2-12.0); Platelet Count 152 K/mm3 (150-450); RBC Distribution Width CV 14.6 % (11.6-14.6); RBC Distribution Width SD 42.3 fl (35.1-43.9); Red Blood Count 2.93 M/mm3 (4.2-5.4); White Blood Count 16.1 K/mm3 (4.4-11.0)
[2019-09-04 08:00] VITALS: BP 114/63; PULSE 72; RESP 18; TEMP 37.2
--- NOTE | 2019-09-04 08:11 | PCM.PN.OB ---
Patient Problems: Active and Suspected Problems 39 weeks gestation of (Acute) Subjective: Feeling well after . Wants to go home tonight. Passing flatus, urinating fine, and pain well controlled with Ibuprofen and Tylenol. Objective: Laying in bed sleeping upon entry. - Physical Exam Vitals/I&O's: Vital Signs Temp Pulse Resp BP Pulse Ox 98.5 F 73 16 110/58 L 100 09/04/19 01:00 09/04/19 01:00 09/04/19 01:00 09/04/19 01:00 09/04/19 01:00 Oxygen Delivery Method Room Air Weight: 71.214 kg Body Mass Index (BMI) 28.7 Intake and Output for Last 24 Hours 09/02/19 09/03/19 09/04/19 23:59 23:59 23:59 Intake Total 4055.84 / 4055.84 2923.58 / 2923.58 Output Total 3200 / 3200 3500 / 3500 850 / 850 Balance 855.84 / 855.84 -576.42 / -576.42 -850 / -850 General: Alert, Oriented x3, Cooperative HEENT: Atraumatic, PERRLA, EOMI, Normocephalic Neck: Supple, No JVD, Negative Carotid Bruits Lungs: Clear to auscultation, Normal air movement Cardiovascular: Regular rate, No murmurs Abdomen: Bowel Sounds Present, Soft, Passing Flatus, - - fundus u/3 Extremities: No edema, Capillary Refill Less than 3 Seconds Skin: No rashes, No breakdown, Incision - mepilex on with old spot of drainage circled Musculoskeletal: No Tenderness to Palpation of Joints or Extremities Neurological: Cranial nerves II-XII grossly intact Psych/Mental Status: Normal Affect, Appropriate Laboratory Results 09/03/19 09:55: Hepatitis C Antibody Non-Reactive, HIV 1&2 Antibody Non-Reactive 09/03/19 09:55: WBC 18.2 H, RBC 3.14 L, Hgb 8.3 L, Hct 25.4 L, MCV 80.9 L, MCH 26.4 L, MCHC 32.7, RDW Std Deviation 41.3, RDW Coeff of Jared 14.2, Plt Count 142 L, MPV 10.7, Immature Gran % (Auto) 1.100 H, Neut % (Auto) 79.3 H, Lymph % (Auto) 11.1 L, Mclennan % (Auto) 8.3, Eos % (Auto) 0.0, Baso % (Auto) 0.2, Absolute Neuts (auto) 14.0 H, Absolute Lymphs (auto) 1.95, Nucleated RBC % 0, Differential Comment Not Reportable 09/04/19 05:00: WBC 16.1 H, RBC 2.93 L, Hgb 8.0 L, Hct 23.8 L, MCV 81.2, MCH 27.3, MCHC 33.6, RDW Std Deviation 42.3, RDW Coeff of Jared 14.6, Plt Count 152, MPV 10.7 Current Medications Acetaminophen (Tylenol) 1,000 mg PO Q8H PRN PRN Reason: Pain Score 1-3/10 Bisacodyl (Dulcolax) 10 mg RECTAL UD PRN PRN Reason: If no BM Hydrocortisone (Hytone) 1 applic TOPICAL TID PRN PRN; Protocol PRN Reason: Discomfort Naloxone HCl 4 mg/ Dextrose 504 mls @ 0 mls/hr IV .Q0M PRN; Protocol PRN Reason: Respiratory depression Ibuprofen (Motrin) 600 mg PO Q6H PRN PRN PRN Reason: Pain Score 1-3/10 Last Admin: 09/04/19 02:31 Dose: 600 mg Documented by: Methylergonovine Maleate (Methergine) 0.2 mg IM X1 PRN PRN Reason: Uterine Atony Last Admin: 09/03/19 02:13 Dose: 0.2 mg Documented by: Naloxone HCl (Narcan) 0.02 mg IV Q1M PRN PRN Reason: RR <10 and pt unresponsive Ondansetron HCl (Zofran) 4 mg IV Q4H PRN PRN PRN Reason: NAUSEA Last Admin: 09/02/19 09:30 Dose: 4 mg Documented by: Oxycodone HCl (Oxyir) 5 - 10 mg PO Q4H PRN PRN PRN Reason: Pain Score 4-10/10 Multivit/Folic Acid/Iron (Prenatabs Fa) 1 tablet PO DAILY KARLOS Last Admin: 09/03/19 13:22 Dose: Not Given Documented by: Prochlorperazine Edisylate (Compazine Iv) 10 mg IV Q6H PRN PRN PRN Reason: NAUSEA Senna/Docusate Sodium (Senokot-S, Nati-Colace) 1 - 2 tablet PO DAILY PRN PRN Reason: Constipation Simethicone (Mylicon) 80 mg PO PCHS PRN PRN Reason: Indigestion/stomach pain Sodium Chloride () 5 - 15 ml IV UD PRN PRN Reason: SALINE FLUSH Last Admin: 09/03/19 19:39 Dose: 15 ml Documented by: Medical Necessity - Tobacco Use Smoking Status: Never smoker Assessment/Plan All Active Problems 39 weeks gestation of (Acute) POD#1 Primary C section for arrest of dilatation. Stable postop. incision CDI. AVSS Pain control adequate. Is breastfeedijng, going well. Regular diet and activity as tolerated. Plan Ibuprofen,Tylenol, and Colace prn. Encourage C&DB IS Advised of potential for postop fevers, pneumonia. Is wearing abdominal binder. Nursing assist prn. Continue care. Potential discharge late this evening after discussing with attending
[2019-09-04] MEDS: Senna/Docusate Sodium 1 Tablet PO (08:28)
[2019-09-04] MEDS: Prenatal Vits Tablet 1 TABLET PO (12:00)
[2019-09-04 15:30] VITALS: BP 122/70; PULSE 70; RESP 18; TEMP 36.8
--- NOTE | 2019-09-07 11:55 | DS.PCM_ITS ---
Discharge Date and Diagnosis Date of Admission: 09/01/19 Date of Discharge: 09/04/19 Hospital Course and Treatment Operations: - - cseciton Summary of Care Provided: The patient is a 23 year old F [] - Physical Exam Vitals/I&O's: Vital Signs Temp Pulse Resp BP Pulse Ox 98.3 F 70 18 122/70 H 100 09/04/19 15:30 09/04/19 15:30 09/04/19 15:30 09/04/19 15:30 09/04/19 01:00 Oxygen Delivery Method Room Air Weight: 71.214 kg Body Mass Index (BMI) 28.7 General: Alert, Oriented x3, Cooperative HEENT: Atraumatic, PERRLA, EOMI, Normocephalic Neck: Supple, No JVD, Negative Carotid Bruits Lungs: Clear to auscultation, Normal air movement Cardiovascular: Regular rate, No murmurs Abdomen: Bowel Sounds Present, Soft, Non Tender, Passing Flatus, - - fundus u/2 Extremities: No edema, Capillary Refill Less than 3 Seconds Skin: No rashes, No breakdown Musculoskeletal: No Tenderness to Palpation of Joints or Extremities Neurological: Cranial nerves II-XII grossly intact Psych/Mental Status: Normal Affect, Appropriate Discharge Diet: No Restrictions Discharge Activity: May not drive while taking narcotic pain medications., May Shower, May Take a Tub Bath Return to work on:: 11/02/19 May resume sexual activity in: 4-6 weeks Additional Activity Instructions:: Nothing in the vagina for 4-6 weeks. You may return to work/school in 6 weeks. Call your doctor if your incision/area has: Continuous Slow Oozing, Sudden Increased Bleeding, Increased Pain/ Swelling, Increased Redness, Foul Smelling Discharge, Swelling at the incision site Call your doctor if you observe: Fever of 101 or Higher, Coldness, Increased Pain, Numbness or Tingling, Change in Color, Inability to urinate, Inability to have a bowel movement, Using more than one pad per hour, Shortness of breath, Dizziness, Fainting spells, Swelling in the ankles, Chest pain, Prolonged hiccoughing, Increased palpitations (irregular heartbeat), Calf discomfort, Uncontrolled pain Change Dressing in (Days):: 7 Remove Dressing in (days):: 7 Cleanse incision/area with: Soap & Water, Keep Dressing Clean & Dry Home Medications: Medications to take at Discharge Vits [Prenatabs FA] 1 tab PO DAILY 06/29/19 Docusate Sodium [Colace] 100 mg PO BID #30 cap 09/03/19 Naproxen [Naprosyn] 250 - 500 mg PO TID PRN PRN #30 tab 09/03/19 Oxycodone [Oxyir] 5 mg PO Q6H PRN PRN 4 Days #15 tab 09/03/19 Following Prescrptions Were Given to Patient: Docusate Sodium [Colace] 100 mg PO BID #30 cap Transmission Status: Received by [id number] Naproxen [Naprosyn] 250 - 500 mg PO TID PRN PRN #30 tab PRN Reason: Mild-Mod Pain (1-02/06) Transmission Status: Received by [id number] Oxycodone [Oxyir] 5 mg PO Q6H PRN PRN 4 Days #15 tab PRN Reason: Mod-Severe Pain (-07/09) Transmission Status: Received by [id number] Primary Care Physician: Care Physician,No Primary [Primary Care Provider] - Please Follow Up With: Elke Ray MD - [phone] When: Call to make an appointment for an incision check in 1 weeks. Medical Necessity - Tobacco Use Smoking Status: Never smoker Meaningful Use Info Meaningful Use Diagnoses (Choose all that apply): None applicable
== END 2019-09-04 15:45 | disposition home or self-care (01) | DRG 540 ==
LOC: WP 10:55 → WPOUT 10:55
PROVIDERS: Advanced Practice Midwife; Admitting Provider Obstetrics & Gynecology; Visit Provider Obstetrics & Gynecology
DX: O42.12 Full-term premature rupture of membranes, onset of labor more than 24 hours following rupture (principal); O98.82 Other maternal infectious and parasitic diseases complicating childbirth; B95.1 Streptococcus, group B, as the cause of diseases classified elsewhere; O62.1 Secondary uterine inertia; Z3A.39 39 weeks gestation of pregnancy; Z37.0 Single live birth
CPT/HCPCS: 59025; 59050; 84112; 85025; 85027; 86703; 86803; 86850; 86900; 86901; 88307; 99218; J7120; A4216; G0378; J2405

== ENCOUNTER 2019-11-10 20:08 | Emergency (ER) | payer MEDICAID, SELFPAY ==
[2019-11-10 20:09] VITALS: BP 141/79; PULSE 64; RESP 15; TEMP 36.1; O2SAT 99; BMI 23.5
--- NOTE | 2019-11-10 20:25 | ED.VIS.GEN ---
History of Present Illness Chief Complaint: Eye Problem Informant: Patient Onset: Today Context: Gradual Onset Timing: Continuous Current Severity: Moderate Maximum Severity: Moderate Narrative: The patient presents to the emergency department left eye pain. She states that about 6 hours ago, she was pressure washing a car that had blood on it. She feels like she got something in her left eye. She has tried to irrigate the eye, but is still had some mild pain and redness. She states her vision feels blurry. Her tetanus is up-to-date. She does not wear glasses or contacts. She is otherwise been in her normal state of health. Prior similar symptoms: No Recent Illness/Hospitalization: No Past Medical History - Allergies and Home Meds Allergies/Adverse Reactions: Allergies Penicillins Allergy (Verified 11/10/19 20:09) Rash Primary Care Physician: Care Physician,No Primary [Primary Care Provider] - Prior records reviewed: Yes Past Medical History: None Surgical History: no surgical history Smoking Status: Never smoker Review of Systems General: Denies: Chills, Fever, Sweats Eyes: Reports: Blurred vision - left. Denies: Visual changes - bilaterally, Diplopia ENT: Denies: Rhinorrhea, Sore throat Cardiovascular: Denies: Chest pain, Palpitations Respiratory: Denies: Dyspnea, Cough, Dyspnea on exertion Gastrointestinal: Denies: Abdominal pain, Nausea, Vomiting, Diarrhea, Melena, Hematochezia Genitourinary: Denies: Dysuria, Hematuria, Frequency Musculoskeletal: Denies: Back pain, Extremity Pain Skin: Denies: Rash, Wounds Neurological: Denies: Headache, Weakness, Numbness Physical Exam Vital Signs/Narrative: Vital Signs Temp Pulse Resp BP Pulse Ox 11/10/19 20:09 96.9 F L 64 15 141/79 H 99 Inital Vital Signs reviewed: Yes General: Well nourished, Well developed, No Acute Distress Head: Normocephalic, Atraumatic Eyes: Perrl, EOMI ENT: Moist mucous membranes, No rhinorrhea Neck: Supple, Nontender Cardiovascular: Regular rate, Regular rhythm, No murmurs Respiratory: No distress, CTA bilaterally, Chest nontender Abdomen: Soft, Nontender, Nondistended, Normal bowel sounds Back: Nontender, Normal Inspection Extremities: Nontender, No edema Skin: Normal color, No rash Neurological: Alert, Oriented x3, Cranial nerves II-XII grossly intact, Normal Strength, Normal Sensation Psychological: Normal affect, Normal Mood Diagnostic/Tx/Re-eval - Medical Decision Making Slit-lamp examination was performed after tetracaine and fluorescein were instilled. The eyelids were everted without evidence of foreign body. There is no evidence of retained foreign body, but the patient does have a 2 mm corneal abrasion at the 3 o'clock position. There is no Bettye sign, hypopyon, or hyphema. The patient will be placed on erythromycin ointment. She will be given outpatient ophthalmology follow-up. She was counseled on concerning symptoms and reasons to return. She will be discharged home. Impression 1. Left eye corneal abrasion ED Disposition - Plan for ED Patient: Instructions: ED Corneal Abrasion Referrals: Daryl Lomeli MD [STAFF PHYSICIAN] - 1-2 Days if not improving
[2019-11-10] MEDS: Tetracaine 0.5% Ophthalmic Bottle 1 DRP LEFT EYE (21:10)
[2019-11-10] MEDS: Erythromycin Base 1 OPTH.TUBE 1 APPLIC LEFT EYE (21:10)
[2019-11-10] MEDS: Fluorescein 1 MG STRIP 1 STRIP LEFT EYE (21:11)
[2019-11-10 21:13] VITALS: PULSE 75; RESP 16; O2SAT 98
== END 2019-11-10 21:15 | disposition home or self-care (01) ==
LOC: ED 20:22
PROVIDERS: Emergency Provider Emergency Medicine
DX: S05.02XA Injury of conjunctiva and corneal abrasion without foreign body, left eye, initial encounter (principal); X58.XXXA Exposure to other specified factors, initial encounter; Y93.89 Activity, other specified; Y92.89 Other specified places as the place of occurrence of the external cause; Y99.8 Other external cause status
CPT/HCPCS: 99283

== ENCOUNTER → 2021-01-06 09:53 | Outpatient (CLI) | payer MEDICAID, SELFPAY ==
[2021-01-06 11:12] LABS: Internal QC Validated? YES +Cl - CLEAR BKGD; Pregnancy, Serum, hCG Quali. NEGATIVE Negative
[2021-01-06 11:15] LABS: Progesterone Level 0.23 ng/mL (See Comment)
== END ==
PROVIDERS: Visit Provider Obstetrics & Gynecology
DX: Z30.430 Encounter for insertion of intrauterine contraceptive device (principal)
CPT/HCPCS: 36415; 84144; 84703

== ENCOUNTER 2023-07-27 20:50 | Outpatient (CLI) | payer OTHER, MEDICAID, SELFPAY ==
[2023-07-27 21:06] VITALS: BMI 29.5
[2023-07-27 21:12] VITALS: BP 121/68; PULSE 77; TEMP 37; O2SAT 98
--- NOTE | 2023-07-28 16:40 | OB.TRI.NOTE ---
HPI - General General Date of Service: 07/27/23 HPI Narrative OSBALDO SHERMAN, is a 27 F who presents Maternal Data Information Final SHAMEKA: 08/05/23 Gestational age: 38&5 PFSH PFSH Home Medications ferrous sulfate 325 mg (65 mg iron) tablet (iron) 325 mg PO DAILY 07/27/23 [History Last Taken 07/26/23] vit no.95-ferrous fumarate 28 mg-folic acid 800 mcg tablet () 1 tab PO DAILY 07/27/23 [History Last Taken 07/27/23] Allergy/AdvReac Type Severity Reaction Status Date / Time Penicillins Allergy Rash Verified 07/27/23 21:20 Social History Smoking Status: Former smoker History Elective abortions Hx Para 0 Spontaneous abortions Hx # Term Pregnancies Ectopic pregnancies Hx # Pregnancies Multiple births # of living children NST FHR Rate Baby A Baseline: 110 Variability:: Moderate Accelerations:: 15 x 15 Decelerations:: None Uterine Activity:: irritability Assessment & Plan (1) False labor: PLAN: Plan reactive NST
== END 2023-07-27 21:52 | disposition home or self-care (01) ==
LOC: WPOUT 21:01 → WP 21:02
PROVIDERS: Visit Provider Obstetrics & Gynecology
DX: O47.1 False labor at or after 37 completed weeks of gestation (principal); Z87.891 Personal history of nicotine dependence; Z3A.38 38 weeks gestation of pregnancy
CPT/HCPCS: 59025; 59050; 99221; G0378

== ENCOUNTER 2023-07-30 09:35 | Inpatient (IN) | payer OTHER, MEDICAID, SELFPAY ==
--- NOTE | 2023-07-29 14:29 | HP.PCM_ITS ---
History and Physical Date of Admission: 07/30/23 HPI: The patient is a 27 year old female presenting for pre-operative visit. She is scheduled for , for 39 weeks and previous c/s on 06/3123. Procedure discussed along with risks, benefits and complications. Other alternatives discussed for management. Consent form signed? Yes. ? ? PAST MEDICAL HISTORY PAST MEDICAL HISTORY Diagnosis Date ? Anemia ? ? Chlamydia ? ? Screening for genetic disease carrier status 02/22/2023 ? Negative myrad carrier screening panel ? ? PAST SURGICAL HISTORY PAST SURGICAL HISTORY Procedure Laterality Date ? DELIVERY ONLY ? ? ? PAST SURGICAL HISTORY OF ? ? ? iosdom teeth ? TONSILLECTOMY & ADENOIDECTOMY <AGE 12 ? CURRENT MEDICATIONS Current Outpatient Medications Medication Sig Dispense Refill ? Ferrous Sulfate (SLOW FE) 142 mg (45 mg iron) TbER Take by mouth. ? ? ? VITS-IRON FUM-FOLIC ORAL Vits Active 1 TAB DAILY June 29, 2019 4:50am ? ? ? No current facility-administered medications for this visit. ? ? ALLERGIES: Penicillins ? PERSONAL HISTORY: SOCIAL HISTORY Social History ? Tobacco Use ? Smoking status: Never ? Smokeless tobacco: Never Vaping Use ? Vaping Use: Former ? Quit date: 12/02/2022 ? Substances: Nicotine Substance Use Topics ? Alcohol use: Not Currently ? ? Comment: occasionally ? Drug use: No ? FAMILY HISTORY: FAMILY HISTORY FAMILY HISTORY Problem Relation Age of Onset ? No Known Problems Mother ? ? No Known Problems Father ? ? other (heart arrhythmia) Sister ? ? No Known Problems Sister ? ? No Known Problems Sister ? ? No Known Problems Sister ? ? No Known Problems Sister ? ? No Known Problems Sister ? ? No Known Problems Sister ? ? No Known Problems Brother ? ? No Known Problems Maternal Grandmother ? ? Lung Cancer Maternal Grandfather ? ? Cancer Paternal Grandmother ? ? No Known Problems Paternal Grandfather ? ? ? REVIEW OF SYMPTOMS: GENERAL: denies fevers or chills ENDOCRINOLOGY: has not been on steroids Cardiology : denies palpitations or chest pain Respiratory: denies SOB or cough Hematology: denies history of prolonged bleeding or easy bruising or VTE Allergy: Denies history of personal or family history of allergy to anesthesia ? PHYSICAL EXAMINATION: ? VITALS: Blood pressure 100/60, weight 158 lb 6.4 oz (71.8 kg), last menstrual period 10/29/2022. ? GENERAL: The patient is well nourished, well hydrated in no acute distress. , The patient is oriented to time, place, and person. NECK: Supple. No lynphadenopathy, normal thyroid, no thyromegaly. LUNGS: Clear to auscultation bilaterally. no wheezes, rhonchi or rales HEART: Regular rate and rhythm, Normal heart sounds, and No murmurs or gallops abd- soft, nontender, gravid ? IMPRESSION: Estimated Date of Delivery: 08/05/23 previous c/s ? PLAN: The risks/benefits/alternatives and personal involved for the planned c- section were reviewed with the patient. Her questions were answered to her satisfaction and she desires to proceed. Consent was signed. I reviewed with her postop instructions and expectations. ? ? ? I have reviewed and updated past medical and surgical history, medications and allergies Assessment & Plan Assessment/Plan (1) 39 weeks gestation of : (2) Previous delivery affecting :
[2023-07-30] VITALS (15 sets, daily range): BP systolic 89–115; BP diastolic 43–66; PULSE 67–86; RESP 14–18; TEMP 36.4–36.9; O2SAT 95–100; BMI 29.1
[2023-07-30] MEDS: Acetaminophen 500 MG Tablet 1000 MG PO ×3 (10:08→21:53)
[2023-07-30] MEDS: Lactated Ringers 1,000 ML 999 ML IV (10:09)
[2023-07-30 10:22] LABS: Absolute Lymphocyte Count 3.32 X10^3/uL (0.83-4.51); Absolute Neutrophil Count 9.6 X10^3/uL (2.0-7.7); Basophil# 0.09 X10^3/uL; Basophil% 0.6 % (0-1); Eosinophil# 0.02 X10^3/uL; Eosinophils% 0.1 % (0-5); Hematocrit 33.1 % (37-47); Hemoglobin 10.6 g/dL (12.0-15.0); Lymphocyte # 3.32 X10^3/ul (0.83-4.51); Lymphocyte % 23.3 % (19-41); Mean Corpuscular Volume 81.3 fL (81-99); Mean Platelet Vol. 10.3 fl (6.2-12.0); Monocyte# 0.81 X10^3/uL; Monocyte% 5.7 % (0-10); NRBC Flagged by Analyzer 0 % (0-5); Neutrophil # 9.59 X10^3/uL (2.7-7.7); Neutrophil % 67.3 % (47-70); Platelet Count 209 K/mm3 (150-450); RBC Distribution Width CV 14.3 % (11.6-14.6); RBC Distribution Width SD 41.6 fl (35.1-43.9); Red Blood Count 4.07 M/mm3 (4.2-5.4); White Blood Count 14.3 K/mm3 (4.4-11.0)
[2023-07-30 11:03] LABS: Syphilis Antibodies Non-reactive
[2023-07-30] MEDS: Lactated Ringers 1,000 ML 150 ML IV (11:16)
[2023-07-30] MEDS: Sodium Citrate/Citric Acid 30 ML UDC PO (12:02)
[2023-07-30] MEDS: Cefazolin 2 GM in 0.9% Normal Saline (100mL Bag) 100 ML IV (12:08)
--- NOTE | 2023-07-30 13:15 | EX.PCM.OBRPT ---
Maternal Data Information Final SHAMEKA: 08/05/23 Gestational age: 39&1 Details Operative Information Date of Procedure: 07/30/23 Pre-Operative Diagnosis: (1) Prior section Post-Operative Diagnosis: Same Indications for : Repeat Elective Indications Narrative: The patient was taken to the operating room where spinal anesthesia was placed & found to be adequate. She was prepped and draped in the dorsal supine position with a leftward tilt. A Pfannenstiel skin incision was made approximately 2 cm above the symphysis pubis and carried through to the underlying fascia with the scalpel. The fascia was incised incised in the midline and extended laterally with the Kim scissors. The rectus muscles were in the midline and the peritoneum was entered carefully and bluntly. The peritoneal incision was stretched and the bladder blade was inserted. Vesicouterine peritoneum was tented up, incised & then bladder flap created gently. The uterine incision was made in a low transverse fashion with the scalpel and extended superiorly and inferiorly with blunt dissection. The 's head was brought to the incision in the flexed position and delivered without difficulty. The head was gently guided to allow delivery of the anterior and posterior shoulders. The body then delivered with fundal pressure in the standard fashion. The 3VC cord was clamped and cut in delayed fashion. The was handed off to the waiting manager configuration. The placenta was delivered with fundal massage and gentle traction in the standard fashion. The uterus was exteriorized and cleared of clots and debris. The uterine incision was closed with #1 Vicryl suture in a running locked fashion. Monocryl suture was used in an imbricating fashion. The incision was examined and was found to be hemostatic. The uterus was returned to the abdominal cavity. After irrigating Kamini was placed over the uterine incision as some areas were denuded (but hemostatic). The peritoneum was closed with vicryl suture in running fashion The rectus muscle was examined and any bleeding was Bovie cauterized. The fascia was closed with PDS suture in a running standard fashion. The subcutaneous tissue was examining and any bleeding was Bovie cauterized. The subcutaneous tissue was reapproximated with interrupted sutures. The skin was closed in a subcuticular fashion by the OPERATING ENGINEER APPRENTICE while I was present in the labor & delivery unit. The remainder of the procedure was performed by me with assistance. All sponge, lap, and needle counts were correct. The patient was taken to her room for recovery in a stable condition. Classification: Scheduled Procedure Type: low transverse architect naval #1: Jin Marshall Type of Anesthesia: Spinal Antibiotic Given: Ancef 2 grams IV x1 Drain: Martínez to straight drain Estimated Blood Loss: 700ml Fluids Replaced: 1000ml Procedure Start Time: 12:29 Procedure Stop Time: 13:24 Findings Description of Procedure: Normal maternal uterus and adnexa Presentation: Positive for Vertex Amniotic Membrane Rupture Type: Artificial Amniotic Fluid Description: Clear Placental Delivery Description: Expressed Placenta Disposition: [facility] Specimen(s) Sent to Pathology: none Cord Vessel Description: 3 Vessels Cord Entanglement: Around neck x 1, loose Nuchal Cord Compression: Without compression Infant A Gender: Male (weight = 6lbs) (1 minute): 8 (5 minute): 9 Delayed Cord Clamping: Yes Complications Complications: none
[2023-07-30] MEDS: Oxytocin 15 Units/NS 250ml 15 UNITS/250 ML IV.SOLN 83 UNITS IV (13:56)
[2023-07-30] MEDS: Ketorolac 30 MG/ML Syringe IV ×2 (14:13→20:19)
[2023-07-30] MEDS: Lactated Ringers 1,000 ML 100 ML IV (16:44)
--- NOTE | 2023-07-30 22:50 | NURSING ---
At 2245, pt expressed concerns about not producing enough breast milk and asked NT about using donor milk. NT notified Onelia HERNANDES and Angelita HERNANDES.
[2023-07-31] MEDS: Enoxaparin 40 MG/0.4 ML Syringe SC ×2 (02:07→22:43)
[2023-07-31] MEDS: Ketorolac 30 MG/ML Syringe IV ×2 (02:07→07:28)
[2023-07-31] MEDS: 0.9% Saline Lock 10 ML Syringe IV ×3 (02:09→09:23)
[2023-07-31 03:58] VITALS: BP 103/41; PULSE 90; RESP 16; TEMP 36.6; O2SAT 98
[2023-07-31] MEDS: Acetaminophen 500 MG Tablet 1000 MG PO ×4 (04:00→22:43)
[2023-07-31 06:29] LABS: Hematocrit 21.6 % (37-47); Hemoglobin 6.8 g/dL (12.0-15.0); Mean Corp Hgb Conc 31.5 g/dL (32-36); Mean Corpuscular Volume 82.4 fL (81-99); Mean Platelet Vol. 10.2 fl (6.2-12.0); Platelet Count 191 K/mm3 (150-450); RBC Distribution Width CV 14.4 % (11.6-14.6); RBC Distribution Width SD 42.7 fl (35.1-43.9); Red Blood Count 2.62 M/mm3 (4.2-5.4); White Blood Count 23.5 K/mm3 (4.4-11.0)
[2023-07-31] MEDS: DiphenhydrAMINE 25 MG Capsule PO (07:28)
[2023-07-31 08:20] VITALS: BP 105/46; PULSE 85; RESP 16; TEMP 36.2; O2SAT 98
--- NOTE | 2023-07-31 08:43 | PCM.DC.SUM ---
Providers Date of Admission: 07/30/23 Primary Care Physician: No Primary Care Phys Reason For Visit: REPEAT Diagnosis Discharge Diagnosis (1) 39 weeks gestation of : Status: Acute Code(s): Z3A.39 - 39 weeks gestation of (2) Previous delivery affecting : Status: Acute Code(s): O34.219 - Maternal care for unspecified type scar from previous delivery Medications at Discharge Home Medications ferrous sulfate 325 mg (65 mg iron) tablet (iron) 325 mg PO DAILY anemia 07/27/23 vit no.95-ferrous fumarate 28 mg-folic acid 800 mcg tablet () 1 tab PO DAILY 07/27/23 acetaminophen 500 mg tablet 1,000 mg (2 x 500 mg) PO Q6H #0 tabs 07/31/23 ibuprofen 600 mg tablet 600 mg PO Q6H #0 tabs 07/31/23 sennosides 8.6 mg-docusate sodium 50 mg tablet (Stool Softener-Stimulant Laxative) 1 - 2 tab PO DAILY #0 tabs 07/31/23 Hospital Course Operations section Summary of Care Provided Minutes Spent on Discharge: 20 Hospital Course: Repeat section. Hospital course was uneventful. Physical Exam Narrative Dressing is dry and intact Const alert and no apparent distress General Appearance: cooperative and comfortable Exam Limitations: no limitations HEENT normocephalic Eyes General Eye: normal appearance of both eyes Neck full ROM General: normal visual inspection Chest Chest: symmetrical chest wall rise Resp normal respiratory effort and normal air movement Effort and Inspection: symmetric chest movement Auscultation: clear to auscultation bilaterally Cardio regular rate and regular rhythm GI normal to inspection, nondistended, normoactive bowel sounds Back/Spine normal ROM Extremity full ROM and no calf tenderness General Extremity: normal exam except as noted Skin no rashes or lesions noted Neuro CN's II-XII intact bilaterally Psych mental status grossly normal Weight / BMI Weight Weight: 159 lb 2.78 oz Body Mass Index (BMI) 29.1 ABG / Lab / Microbiology Data 07/31/23 06:15 Laboratory: Laboratory Results - last 24 hr 07/30/23 10:10: WBC 14.3 H, RBC 4.07 L, Hgb 10.6 L, Hct 33.1 L, MCV 81.3, MCH 26.0 L, MCHC 32.0, RDW Std Deviation 41.6, RDW Coeff of Jared 14.3, Plt Count 209, MPV 10.3, Immature Gran % (Auto) 3.000 H, Neut % (Auto) 67.3, Lymph % (Auto) 23.3, [place] % (Auto) 5.7, Eos % (Auto) 0.1, Baso % (Auto) 0.6, Absolute Neuts (auto) 9.6 H, Absolute Lymphs (auto) 3.32, Nucleated RBC % 0, Syphilis Total Ab Non-reactive, Blood Type A POSITIVE, Antibody Screen NEGATIVE 07/31/23 06:15: WBC 23.5 H, RBC 2.62 L, Hgb 6.8 L, Hct 21.6 L, MCV 82.4, MCH 26.0 L, MCHC 31.5 L, RDW Std Deviation 42.7, RDW Coeff of Jared 14.4, Plt Count 191, MPV 10.2 D/C Instructions Discharge Diet: No restrictions May resume sexual activity in: 6-8 weeks Weight Bearing Status: Weight bearing as tolerated Lifting Restrictions: 20 lbs Call your doctor if your incision/area has: Continuous Slow Oozing, Increased Pain/ Swelling, Increased Redness, Foul Smelling Discharge and Swelling at the incision site Call your doctor if you observe: Fever of 101 or Higher, Inability to urinate, Using more than 1 pad per hour, Shortness of breath, Chest pain, Calf discomfort and Uncontrolled pain Remove Dressing in: 5 days Cleanse incision/area with: Soap & Water and Keep Dressing Clean & Dry When: 1 week in office for incision check or sooner if needed 6 weeks Meaningful Use Info Meaningful Use Diagnoses (Choose all that apply): None applicable Discharge Plan Admission Admit Date/Time: 07/30/23 09:35 Primary Reason for Your Visit: Repeat Section Attending Provider: Uriel Zhang Primary Care Provider: Care Physician,Fara Primary Discharge Orders/Prescriptions Prescriptions: New sennosides-docusate sodium [Stool Softener-Stimulant Laxat] 8.6-50 mg Tablet 1 - 2 tab PO DAILY Qty: 0 0RF acetaminophen 500 mg Tablet 1,000 mg PO Q6H Qty: 0 0RF ibuprofen 600 mg Tablet 600 mg PO Q6H Qty: 0 0RF Continued PNV cmb#95-ferrous fumarate-FA [] 28 mg iron- 800 mcg tablet 1 tab PO DAILY Patient Comments: QOD ferrous sulfate [iron] 325 mg (65 mg iron) tablet 325 mg PO DAILY Referrals / Follow Up: Care Physician,No Primary [Primary Care Provider] - Disposition Disposition (needs filled in before D/C Order can be placed): Home, Self Care
[2023-07-31] MEDS: Senna/Docusate Sodium 1 Tablet PO (10:25)
[2023-07-31] MEDS: Iron Sucrose Complex 200 MG in 0.9% Normal Saline (100mL Bag) 100 ML 220 MG IV (10:25)
[2023-07-31 13:00] VITALS: BP 93/47; PULSE 73; RESP 16; TEMP 36.5; O2SAT 100
[2023-07-31] MEDS: Ibuprofen 600 MG Tablet PO ×2 (14:59→19:54)
[2023-07-31 15:07] LABS: Hematocrit 22.4 % (37-47); Mean Corp Hgb Conc 31.3 g/dL (32-36); Mean Corpuscular Hgb 26.1 pg (27.0-32.0); Mean Corpuscular Volume 83.6 fL (81-99); Mean Platelet Vol. 10.2 fl (6.2-12.0); Platelet Count 193 K/mm3 (150-450); RBC Distribution Width CV 14.6 % (11.6-14.6); Red Blood Count 2.68 M/mm3 (4.2-5.4); White Blood Count 17.8 K/mm3 (4.4-11.0)
[2023-07-31 17:00] VITALS: BP 109/38; PULSE 78; RESP 16; TEMP 36.5
--- NOTE | 2023-07-31 18:28 | PCM.PN.OB ---
Subjective Subjective Patient's HGB. level was 6.8 with morning CBC. Patient is asymptomatic. Will receive IV FE and repeat CBC. Objective Data Objective Data Vital Signs: Vital Signs Temp Pulse Resp BP Pulse Ox O2 Del Method 97.7 F L 78 16 109/38 L 100 Room Air 07/31/23 17:00 07/31/23 17:00 07/31/23 17:00 07/31/23 17:00 07/31/23 13:00 07/31/23 13:00 Oxygen Delivery Method Room Air Weight: 159 lb 2.78 oz Body Mass Index (BMI) 29.1 Intake & Output: Intake and Output for Last 24 Hours 07/29/23 07/30/23 07/31/23 23:59 23:59 23:59 Intake Total 1745.17 / 1745.17 953.33 / 953.33 Output Total 2049 / 2049 550 / 550 Balance -304.83 / -304.83 403.33 / 403.33 Lab / Micro Data 07/31/23 14:57 Labs: Laboratory Results - last 24 hr 07/31/23 06:15: WBC 23.5 H, RBC 2.62 L, Hgb 6.8 L, Hct 21.6 L, MCV 82.4, MCH 26.0 L, MCHC 31.5 L, RDW Std Deviation 42.7, RDW Coeff of Jared 14.4, Plt Count 191, MPV 10.2 07/31/23 08:30: WBC Cancelled, Corrected WBC Cancelled, RBC Cancelled, Hgb Cancelled, Hct Cancelled, MCV Cancelled, MCH Cancelled, MCHC Cancelled, RDW Std Deviation Cancelled, RDW Coeff of Jared Cancelled, Plt Count Cancelled, MPV Cancelled, Diff Path Review Cancelled 07/31/23 14:57: WBC 17.8 H, RBC 2.68 L, Hgb 7.0 L, Hct 22.4 L, MCV 83.6, MCH 26.1 L, MCHC 31.3 L, RDW Std Deviation 44.0 H, RDW Coeff of Jared 14.6, Plt Count 193, MPV 10.2 Assessment & Plan (1) Previous delivery affecting : (2) Anemia due to blood loss: (3) Care and examination of lactating mother: (4) Single delivery by section: PLAN: Plan PO Day 1 Repeat C/S HGB 6.8 Patient asymptomatic- ambulating independently, denies SOB, CP, dizziness, Headache Venofer IV x 1 dose now Repeat CBC was 7.0 Will give another dose of Venofer IV tomorrow AM and repeat CBC DR. Way involved in plan of care
[2023-07-31 19:50] VITALS: BP 116/57; PULSE 74; RESP 16; TEMP 36.6
[2023-08-01 01:55] VITALS: BP 114/55; PULSE 73; RESP 16; TEMP 36.7
[2023-08-01] MEDS: Ibuprofen 600 MG Tablet PO ×2 (01:58→08:45)
[2023-08-01] MEDS: 0.9% Saline Lock 10 ML Syringe IV (05:06)
[2023-08-01] MEDS: Iron Sucrose Complex 200 MG in 0.9% Normal Saline (100mL Bag) 100 ML 220 MG IV (05:06)
[2023-08-01] MEDS: Acetaminophen 500 MG Tablet 1000 MG PO ×2 (05:10→10:10)
--- NOTE | 2023-08-01 08:19 | PN.OBGYN_ITS ---
Subjective Subjective Denies complaints Objective Data Objective Data Vital Signs: Vital Signs Temp Pulse Resp BP Pulse Ox O2 Del Method 98.0 F 73 16 114/55 L 100 Room Air 08/01/23 01:55 08/01/23 01:55 08/01/23 01:55 08/01/23 01:55 07/31/23 13:00 07/31/23 13:00 Oxygen Delivery Method Room Air Weight: 159 lb 2.78 oz Body Mass Index (BMI) 29.1 Intake & Output: Intake and Output for Last 24 Hours 07/30/23 07/31/23 08/01/23 23:59 23:59 23:59 Intake Total 1745.17 / 1745.17 953.33 / 953.33 110 / 110 Output Total 2049 / 2049 550 / 550 Balance -304.83 / -304.83 403.33 / 403.33 110 / 110 Lab / Micro Data 07/31/23 14:57 Labs: Laboratory Results - last 24 hr 07/31/23 08:30: WBC Cancelled, Corrected WBC Cancelled, RBC Cancelled, Hgb Cancelled, Hct Cancelled, MCV Cancelled, MCH Cancelled, MCHC Cancelled, RDW Std Deviation Cancelled, RDW Coeff of Jared Cancelled, Plt Count Cancelled, MPV Ca ncelled, Diff Path Review Cancelled 07/31/23 14:57: WBC 17.8 H, RBC 2.68 L, Hgb 7.0 L, Hct 22.4 L, MCV 83.6, MCH 26.1 L, MCHC 31.3 L, RDW Std Deviation 44.0 H, RDW Coeff of Jared 14.6, Plt Count 193, MPV 10.2 Physical Exam Const alert, oriented x3 and no apparent distress HEENT normocephalic GI soft to palpation, non-tender and non-distended GI Narrative: fundus firm, mid & below umbilicus Incision - bandage c/d/i Extremity normal to inspection and no calf tenderness Assessment & Plan (1) Previous delivery affecting : COMMENT: POD#2 (2) Anemia affecting : QUALIFIERS: Trimester: unspecified trimester Qualified Code(s): O99.019 - Anemia complicating , unspecified trimester PLAN: Plan Heme - HDS. Patient with anemia during & now lower Hb PP. Repeat CBC showed stable Hb yesterday. Patient getting IV iron. PLan for d/c home later today
--- NOTE | 2023-08-01 08:21 | DS.PCM_ITS ---
Providers Date of Admission: 07/30/23 Primary Care Physician: Fara Primary Care Phys Reason For Visit: REPEAT Diagnosis Discharge Diagnosis (1) Previous delivery affecting : Status: Acute Code(s): O34.219 - Maternal care for unspecified type scar from previous delivery (2) Anemia affecting : Status: Acute Code(s): O99.019 - Anemia complicating , unspecified trimester Qualifiers: Trimester: unspecified trimester Qualified Code(s): O99.019 - Anemia complicating , unspecified trimester Plan Heme - HDS. Patient with anemia during & now lower Hb PP. Repeat CBC showed stable Hb yesterday. Patient getting IV iron. PLan for d/c home later today Medications at Discharge Home Medications ferrous sulfate 325 mg (65 mg iron) tablet (iron) 325 mg PO DAILY anemia 07/27/23 vit no.95-ferrous fumarate 28 mg-folic acid 800 mcg tablet () 1 tab PO DAILY 07/27/23 acetaminophen 500 mg tablet 1,000 mg (2 x 500 mg) PO Q6H #0 tabs 07/31/23 ibuprofen 600 mg tablet 600 mg PO Q6H #0 tabs 07/31/23 sennosides 8.6 mg-docusate sodium 50 mg tablet (Stool Softener-Stimulant La xative) 1 - 2 tab PO DAILY #0 tabs 07/31/23 Hospital Course Operations section Weight / BMI Weight Weight: 159 lb 2.78 oz Body Mass Index (BMI) 29.1 ABG / Lab / Microbiology Data 07/31/23 14:57 Laboratory: Laboratory Results - last 24 hr 07/31/23 08:30: WBC Cancelled, Corrected WBC Cancelled, RBC Cancelled, Hgb Cancelled, Hct Cancelled, MCV Cancelled, MCH Cancelled, MCHC Cancelled, RDW Std Deviation Cancelled, RDW Coeff of Jared Cancelled, Plt Count Cancelled, MPV Cancelled, Diff Path Review Cancelled 07/31/23 14:57: WBC 17.8 H, RBC 2.68 L, Hgb 7.0 L, Hct 22.4 L, MCV 83.6, MCH 26.1 L, MCHC 31.3 L, RDW Std Deviation 44.0 H, RDW Coeff of Jared 14.6, Plt Count 193, MPV 10.2 D/C Instructions Discharge Diet: No restrictions Discharge Activity: May Shower May resume sexual activity in: 6-8 weeks Weight Bearing Status: Weight bearing as tolerated Call your doctor if your incision/area has: Continuous Slow Oozing, Increased Pain/ Swelling, Increased Redness, Foul Smelling Discharge and Swelling at the incision site Call your doctor if you observe: Fever of 101 or Higher, Inability to urinate, Using more than 1 pad per hour, Shortness of breath, Chest pain, Calf discomfort and Uncontrolled pain Cleanse incision/area with: Soap & Water and Keep Dressing Clean & Dry Please Follow Up With: Uriel Zhang MD When: 1 week in office for incision check or sooner if needed 6 weeks Meaningful Use Info Meaningful Use Diagnoses (Choose all that apply): None applicable Discharge Plan Admission Admit Date/Time: 07/30/23 09:35 Primary Reason for Your Visit: Repeat Section Attending Provider: Uriel Zhang Primary Care Provider: Care Physician,Fara Primary Discharge Orders/Prescriptions Prescriptions: New sennosides-docusate sodium [Stool Softener-Stimulant Laxat] 8.6-50 mg Tablet 1 - 2 tab PO DAILY Qty: 0 0RF acetaminophen 500 mg Tablet 1,000 mg PO Q6H Qty: 0 0RF ibuprofen 600 mg Tablet 600 mg PO Q6H Qty: 0 0RF Continued PNV cmb#95-ferrous fumarate-FA [] 28 mg iron- 800 mcg tablet 1 tab PO DAILY Patient Comments: QOD ferrous sulfate [iron] 325 mg (65 mg iron) tablet 325 mg PO DAILY Referrals / Follow Up: Care Physician,No Primary [Primary Care Provider] - Disposition Disposition (needs filled in before D/C Order can be placed): Home, Self Care
[2023-08-01 08:49] VITALS: BP 101/54; PULSE 80; RESP 16; TEMP 36.3; O2SAT 97
[2023-08-01] MEDS: Senna/Docusate Sodium 1 Tablet PO (10:10)
[2023-08-01 10:21] LABS: Hematocrit 23.9 % (37-47); Hemoglobin 7.7 g/dL (12.0-15.0); Mean Corp Hgb Conc 32.2 g/dL (32-36); Mean Corpuscular Hgb 26.5 pg (27.0-32.0); Mean Corpuscular Volume 82.1 fL (81-99); Platelet Count 212 K/mm3 (150-450); RBC Distribution Width CV 14.9 % (11.6-14.6); RBC Distribution Width SD 44.2 fl (35.1-43.9); Red Blood Count 2.91 M/mm3 (4.2-5.4); White Blood Count 19.2 K/mm3 (4.4-11.0)
== END 2023-08-01 10:45 | disposition home or self-care (01) | DRG 787 ==
PROVIDERS: Advanced Practice Midwife; Admitting Provider Obstetrics & Gynecology; Visit Provider Obstetrics & Gynecology
PROC: 10D00Z1 Extraction of Products of Conception, Low, Open Approach (ICD-10-PCS; CPT 59514; principal; 2023-07-30 11:45)
DX: O34.219 Maternal care for unspecified type scar from previous cesarean delivery (principal); D62 Acute posthemorrhagic anemia; O69.2XX0 Labor and delivery complicated by other cord entanglement, with compression, not applicable or unspecified; Z37.0 Single live birth; Z3A.39 39 weeks gestation of pregnancy; O90.81 Anemia of the puerperium
CPT/HCPCS: 59050; 85025; 85027; 86780; 86850; 86900; 86901; 99221; J1756; J7050; J7120; A4216; G0378; J2405